=== PATIENT | male | born 1965 | race Two or more races ===

== ENCOUNTER 2020-05-10 21:26 | Inpatient (IN) | payer MEDICAID ==
[~2020-05-10] VITALS: Ht 170.2 cm; Wt 83.3 kg
[2020-05-10] MEDS ORDERED: LISI-662 PO (22:37)
[2020-05-10] MEDS ORDERED: BACITRACIN 0.9 GM PACKET OINTMENT TP ONE (23:00)
[2020-05-10] MEDS ORDERED: PERTUSS(ACELL),DIPH,TET VAC/PF 0.5 ML SYRINGE IM ONE (23:00)
[2020-05-10] MEDS ORDERED: LIDOCAINE 2% 5 ML JELLY TP ONE (23:00)
[2020-05-10 23:18] LABS: BASOPHILS % (AUTO) 0.7 % (0.0-2.0); HEMATOCRIT 42.2 % (41-53); HEMOGLOBIN 14.3 g/dL (13.5-17.5); LYMPHOCYTES # (AUTO) 1.4 K/uL (1.0-4.8); LYMPHOCYTES % (AUTO) 15.6 % (22.0-44.0); MEAN CORPUSCULAR HEMOGLOBIN 32.6 pg (26.0-34.0); MEAN CORPUSCULAR HGB CONC 33.8 G/dL (31.0-37.0); MEAN CORPUSCULAR VOLUME 96 fL (80-100); MONOCYTES # (AUTO) 0.7 K/uL (0.1-1.0); MONOCYTES % (AUTO) 8.6 % (2.0-9.0); NEUTROPHILS # (AUTO) 6.4 K/uL (1.8-7.7); NEUTROPHILS % (AUTO) 73.1 % (40.0-70.0); PLATELET COUNT (AUTO) 236 K/uL (150-450); RED BLOOD CELL COUNT(AUTO) 4.38 MIL/uL (4.50-5.90); RED CELL DISTRIBUTION WIDTH 13.1 % (11.5-14.5)
[2020-05-10 23:29] LABS: ANION GAP 7 mmol/L (8-16); CALCIUM, TOTAL 8.5 mg/dL (8.8-10.5); CARBON DIOXIDE 28 mmol/L (22-29); CHLORIDE 102 mmol/L (98-107); CREATININE 1.41 mg/dL (0.60-1.30); GLOMERULAR FILTR. RATE CALC 52 mL/min (>60); GLUCOSE,RANDOM 113 mg/dL (70-110); POTASSIUM 3.5 mmol/L (3.5-5.1); SODIUM SERUM 137 mmol/L (136-145); UREA NITROGEN, BLOOD 14 mg/dL (7-18)
[2020-05-10 23:34] LABS: ALANINE AMINOTRANSFERASE 34 U/L (12-78); ALBUMIN 3.6 g/dL (3.4-5.0); ALKALINE PHOSPHATASE 68 U/L (46-116); ASPARTATE AMINOTRANSFERASE 35 U/L (15-37); BILIRUBIN,TOTAL 0.6 mg/dL (0.1-1.0)
[2020-05-11] MEDS ORDERED: POTASSIUM CHL 20 MEQ/D5-0.45NS 1,000 ML IV ONE (01:15)
[2020-05-11] MEDS ORDERED: ONDANSETRON HCL 4 MG/2 ML VIAL IVP PRN ×2 (01:15→11:15)
[2020-05-11] MEDS ORDERED: 0.9% SODIUM CHLORIDE 10 ML SYRINGE IVP PRN (01:15)
[2020-05-11 01:49] LABS: COVID AG,FIA SOURCE NASOPHARYNGEAL
[2020-05-11 03:14] VITALS: BP 126/86
[2020-05-11 08:01] VITALS: BP 130/86
[2020-05-11] MEDS ORDERED: BISACODYL 10 MG RECTAL RECTAL SUPPOSITORY PR PRN (11:15)
[2020-05-11] MEDS ORDERED: MAGNESIUM HYDROXIDE SUSPENSION 30 ML UDCUP PO PRN (11:15)
[2020-05-11] MEDS ORDERED: ZOLPIDEM TARTRATE 5 MG TABLET PO PRN (11:15)
[2020-05-11] MEDS ORDERED: HYDROCODONE/ACETAMINOPHEN 5-325 MG TABLET PO PRN (11:15)
[2020-05-11] MEDS ORDERED: MORPHINE SULFATE 2 MG/ML SYRINGE IVP PRN (11:15)
[2020-05-11 11:49] VITALS: BP 145/91
[2020-05-11] MEDS: LISINOPRIL 20 MG TABLET PO SCH (11:52)
[2020-05-11] MEDS: ACETAMINOPHEN 325 MG TABLET PO PRN ×2 (13:55→20:16)
[2020-05-11 15:41] VITALS: BP 115/76
[2020-05-11] MEDS: HEPARIN SODIUM,PORCINE 5,000 UNITS/ML VIAL SQ SCH ×2 (16:00→23:57)
[2020-05-11 20:00] VITALS: BP 106/63
[2020-05-11] MEDS: DOCUSATE SODIUM 100 MG CAPSULE PO SCH (21:00)
[2020-05-11 23:38] VITALS: BP 108/65
[2020-05-12 03:45] VITALS: BP 123/76
[2020-05-12 07:24] VITALS: BP 120/76
[2020-05-12] MEDS: ACETAMINOPHEN 325 MG TABLET PO PRN (08:19)
[2020-05-12] MEDS: DOCUSATE SODIUM 100 MG CAPSULE PO SCH ×2 (08:19→08:20)
[2020-05-12] MEDS: LISINOPRIL 20 MG TABLET PO SCH (08:19)
[2020-05-12] MEDS: HEPARIN SODIUM,PORCINE 5,000 UNITS/ML VIAL SQ SCH (08:19)
[2020-05-12] MEDS ORDERED: PANTOPRAZOLE SODIUM 40 MG DR TABLET PO SCH (09:00)
[2020-05-12 10:31] LABS: ANION GAP 8 mmol/L (8-16); CALCIUM, TOTAL 8.8 mg/dL (8.8-10.5); CARBON DIOXIDE 29 mmol/L (22-29); CHLORIDE 103 mmol/L (98-107); CREATININE 0.88 mg/dL (0.60-1.30); GLOMERULAR FILTR. RATE CALC > 60 mL/min (>60); GLUCOSE,RANDOM 69 mg/dL (70-110); POTASSIUM 4.6 mmol/L (3.5-5.1); SODIUM SERUM 140 mmol/L (136-145); UREA NITROGEN, BLOOD 12 mg/dL (7-18)
== END 2020-05-12 12:15 | disposition home or self-care (01) | DRG 347 ==
LOC: EMS 21:28 → 6N 05-11 01:07
PROVIDERS: ADMIT Internal Medicine; ATTEND Internal Medicine
PROC: 0HQ0XZZ Repair Scalp Skin, External Approach (ICD-10-PCS; principal; 2020-05-11)
DX: S12.101A Unspecified nondisplaced fracture of second cervical vertebra, initial encounter for closed fracture (principal); S01.01XA Laceration without foreign body of scalp, initial encounter; N18.9 Chronic kidney disease, unspecified; R73.9 Hyperglycemia, unspecified; I12.9 Hypertensive chronic kidney disease with stage 1 through stage 4 chronic kidney disease, or unspecified chronic kidney disease; N17.9 Acute kidney failure, unspecified; Z20.822 Contact with and (suspected) exposure to COVID-19; H40.9 Unspecified glaucoma; F17.210 Nicotine dependence, cigarettes, uncomplicated; F10.10 Alcohol abuse, uncomplicated; F19.10 Other psychoactive substance abuse, uncomplicated; V43.02XA Car driver injured in collision with other type car in nontraffic accident, initial encounter; Y93.89 Activity, other specified; Y99.8 Other external cause status; Y92.481 Parking lot as the place of occurrence of the external cause; Z59.0 Homelessness; Z79.899 Other long term (current) drug therapy
CPT/HCPCS: 70450; 72070; 72100; 72125; 72141; 87081; 87426; 90715; 99291; G0480; J1644; J3480; 36415-L1; 36415-TC; 71045-TC

== ENCOUNTER 2020-06-28 21:29 | Emergency (ER) | payer MEDICAID ==
[~2020-06-28] VITALS: Ht 170.2 cm; Wt 79.5 kg
[2020-06-28] MEDS ORDERED: LISI-894 PO (21:38)
[2020-06-29 00:49] VITALS: BP 150/101
== END 2020-06-29 03:01 | disposition left against medical advice (07) ==
LOC: EMS 21:29
DX: S01.01XD Laceration without foreign body of scalp, subsequent encounter (principal); F17.210 Nicotine dependence, cigarettes, uncomplicated; F15.90 Other stimulant use, unspecified, uncomplicated; M79.89 Other specified soft tissue disorders; X58.XXXD Exposure to other specified factors, subsequent encounter
CPT/HCPCS: 99281; Z7502

== ENCOUNTER 2020-07-19 09:50 | Emergency (ER) | payer MEDICAID ==
[~2020-07-19] VITALS: Ht 167.6 cm; Wt 84.1 kg
[~2020-07-19 09:50] MED LIST: LISI-894 PO
[2020-07-19 09:52] VITALS: BP 139/94
[2020-07-19] MEDS ORDERED: SULFAMETHOX/TRIMETH DS 800-160 MG/TABLET PO ONE (10:30)
[2020-07-19] MEDS ORDERED: CEPHALEXIN MONOHYDRATE 500 MG CAPSULE PO ONE (10:30)
== END 2020-07-19 10:41 | disposition home or self-care (01) ==
LOC: EMS 09:54
DX: L02.512 Cutaneous abscess of left hand (principal); L02.414 Cutaneous abscess of left upper limb; I10 Essential (primary) hypertension; F17.210 Nicotine dependence, cigarettes, uncomplicated; F19.90 Other psychoactive substance use, unspecified, uncomplicated; Z79.899 Other long term (current) drug therapy
CPT/HCPCS: 99283

== ENCOUNTER 2021-01-02 11:05 | Emergency (ER) | payer MEDICAID ==
[~2021-01-02] VITALS: Ht 167.6 cm; Wt 84.1 kg
[2021-01-02 11:07] VITALS: BP 131/86
[2021-01-02] MEDS ORDERED: BACITRACIN 0.9 GM PACKET OINTMENT TP ONE (12:30)
[2021-01-02] MEDS ORDERED: POVIDONE-IODINE 10% 15 ML SOLUTION UD TP ONE (12:30)
[2021-01-02] MEDS ORDERED: ACETAMINOPHEN 500 MG TABLET PO ONE (12:30)
== END 2021-01-02 13:05 | disposition home or self-care (01) ==
LOC: EMS 11:09
DX: S81.801A Unspecified open wound, right lower leg, initial encounter (principal); S81.802A Unspecified open wound, left lower leg, initial encounter; I10 Essential (primary) hypertension; F17.210 Nicotine dependence, cigarettes, uncomplicated; F19.90 Other psychoactive substance use, unspecified, uncomplicated; W57.XXXA Bitten or stung by nonvenomous insect and other nonvenomous arthropods, initial encounter; Y93.89 Activity, other specified; Y92.89 Other specified places as the place of occurrence of the external cause; Y99.8 Other external cause status
CPT/HCPCS: 99283

== ENCOUNTER 2021-03-10 09:11 | Inpatient (IN) | payer MEDICAID ==
[~2021-03-10] VITALS: Ht 167.6 cm; Wt 78.9 kg
[2021-03-10] MEDS ORDERED: ONDANSETRON HCL 4 MG/2 ML VIAL IVP ONE (13:00)
[2021-03-10] MEDS ORDERED: ACETAMINOPHEN 500 MG TABLET PO ONE (13:00)
[2021-03-10] MEDS ORDERED: MORPHINE SULFATE 4 MG/ML SYRINGE IVP ONE (13:00)
[2021-03-10] MEDS ORDERED: ACETAMINOPHEN 1000 MG/ISO-OSM 100 ML IV ONE (13:00)
[2021-03-10 13:15] LABS: BASOPHILS % (AUTO) 0.2 % (0.0-2.0); EOSINOPHILS % (AUTO) 0 % (1.0-6.0); HEMOGLOBIN 15.4 g/dL (13.5-17.5); LYMPHOCYTES # (AUTO) 0.7 K/uL (1.0-4.8); LYMPHOCYTES % (AUTO) 2.8 % (22.0-44.0); MEAN CORPUSCULAR HEMOGLOBIN 30.4 pg (26.0-34.0); MEAN CORPUSCULAR HGB CONC 33.4 G/dL (31.0-37.0); MEAN CORPUSCULAR VOLUME 91 fL (80-100); MONOCYTES # (AUTO) 1.7 K/uL (0.1-1.0); MONOCYTES % (AUTO) 6.3 % (2.0-9.0); NEUTROPHILS # (AUTO) 23.6 K/uL (1.8-7.7); PLATELET COUNT (AUTO) 506 K/uL (150-450); RED BLOOD CELL COUNT(AUTO) 5.05 MIL/uL (4.50-5.90); RED CELL DISTRIBUTION WIDTH 14.6 % (11.5-14.5)
[2021-03-10 13:17] LABS: NEUTROPHILS % (AUTO) 90.7 % (40.0-70.0)
[2021-03-10 13:22] LABS: ANION GAP 9 mmol/L (8-16); CALCIUM, TOTAL 9.1 mg/dL (8.8-10.5); CARBON DIOXIDE 25 mmol/L (22-29); CHLORIDE 95 mmol/L (98-107); CREATININE 1.22 mg/dL (0.60-1.30); GLOMERULAR FILTR. RATE CALC > 60 mL/min (>60); GLUCOSE,RANDOM 115 mg/dL (70-110); POTASSIUM 3.9 mmol/L (3.5-5.1); SODIUM SERUM 129 mmol/L (136-145); UREA NITROGEN, BLOOD 14 mg/dL (7-18)
[2021-03-10 13:27] LABS: ALANINE AMINOTRANSFERASE 17 U/L (12-78); ALKALINE PHOSPHATASE 85 U/L (46-116); ASPARTATE AMINOTRANSFERASE 16 U/L (15-37); BILIRUBIN,TOTAL 0.9 mg/dL (0.1-1.0); TOTAL PROTEIN, SERUM 9.5 g/dL (6.4-8.2)
[2021-03-10 13:56] LABS: C-REACTIVE PROTEIN QUANT 26.23 mg/dL (0.00-0.30)
[2021-03-10 14:28] LABS: COVID AG,FIA SOURCE NASAL SWAB
[2021-03-10] MEDS ORDERED: ONDANSETRON HCL 4 MG/2 ML VIAL IVP PRN (14:45)
[2021-03-10] MEDS ORDERED: ACETAMINOPHEN 325 MG TABLET PO PRN (14:45)
[2021-03-10] MEDS ORDERED: MAGNESIUM HYDROXIDE SUSPENSION 30 ML UDCUP PO PRN (14:45)
[2021-03-10 14:57] LABS: ERYTHROCYTE SEDIMENTATION RATE 80 MM/HR (0-15)
[2021-03-10] MEDS: SODIUM CHLORIDE 0.9% 1,000 ML IV SCH ×2 (16:03→22:34)
[2021-03-10 21:22] VITALS: BP 109/69
[2021-03-10] MEDS: DOCUSATE SODIUM 100 MG CAPSULE PO SCH (21:31)
[2021-03-10] MEDS: MORPHINE SULFATE 2 MG/ML SYRINGE IVP PRN (21:32)
[2021-03-10 23:52] VITALS: BP 117/68
[2021-03-11] MEDS: MORPHINE SULFATE 2 MG/ML SYRINGE IVP PRN ×4 (02:54→20:35)
[2021-03-11 04:27] VITALS: BP 116/69
[2021-03-11 07:39] VITALS: BP 123/66
[2021-03-11] MEDS: DOCUSATE SODIUM 100 MG CAPSULE PO SCH ×2 (07:58→20:33)
[2021-03-11] MEDS: PANTOPRAZOLE SODIUM 40 MG/VIAL IVP SCH (07:58)
[2021-03-11] MEDS: SODIUM CHLORIDE 0.9% 1,000 ML IV SCH ×2 (07:58→15:27)
[2021-03-11] MEDS ORDERED: SODIUM CL IRRIG SOLN BAG 6,000 ML IRRIG ONE (10:45)
[2021-03-11] MEDS ORDERED: SODIUM CL IRRIG SOLN BAG 3,000 ML IRRIG ONE (11:48)
[2021-03-11] MEDS ORDERED: BUPIVACAINE 0.25%/EPI 1:200,000/PF 10 ML VIAL ONE (11:48)
[2021-03-11 11:52] VITALS: BP 122/76
[2021-03-11] MEDS ORDERED: EPINEPHrine 1:1,000 [1 MG/ML] AMP ONE ×4 (12:15→12:47)
[2021-03-11] MEDS ORDERED: RINGERS SOLUTION,LACTATED 1,000 ML IV ONE (12:17)
[2021-03-11] MEDS ORDERED: VANCOMYCIN HCL 1 GM/VIAL ONE (13:13)
[2021-03-11] MEDS ORDERED: BUPIVACAINE HCL/PF 0.25% 10 ML VIAL ID ONE (13:15)
[2021-03-11] MEDS ORDERED: VANCOMYCIN HCL 1 GM/VIAL TP ONE (13:15)
[2021-03-11] MEDS ORDERED: FentaNYL CITRATE PF 100 MCG/2 ML VIAL IVP PRN (14:15)
[2021-03-11] MEDS ORDERED: HYDROmorphone 2 MG/ML VIAL IVP PRN (14:15)
[2021-03-11] MEDS ORDERED: MEPERIDINE-PF 25 MG/ML VIAL IVP PRN (14:15)
[2021-03-11 15:28] VITALS: BP 143/99
[2021-03-11] MEDS: HYDROCODONE/ACETAMINOPHEN 5-325 MG TABLET PO PRN ×2 (17:10→23:58)
[2021-03-11] MEDS: OXYGEN THERAPY IH SCH (20:00)
[2021-03-11 20:21] VITALS: BP 112/65
[2021-03-11] MEDS: ASPIRIN 81 MG CHEWABLE TABLET PO SCH (20:33)
[2021-03-11] MEDS: CeFAZolin 1 GM/DEXTROSE 50 ML IV SCH (20:34)
[2021-03-11 23:57] VITALS: BP 110/64
[2021-03-12] MEDS: SODIUM CHLORIDE 0.9% 1,000 ML IV SCH (02:05)
[2021-03-12] MEDS: CeFAZolin 1 GM/DEXTROSE 50 ML IV SCH ×3 (04:25→20:56)
[2021-03-12 04:32] VITALS: BP 118/88
[2021-03-12] MEDS ORDERED: PROPOFOL 1% 20 ML VIAL IVP ONE (06:26)
[2021-03-12] MEDS ORDERED: ONDANSETRON HCL 4 MG/2 ML VIAL IVP ONE (06:26)
[2021-03-12] MEDS ORDERED: SUCCINYLCHOLINE CHLORIDE 20 MG/ML 10 ML VIAL IVP ONE (06:26)
[2021-03-12] MEDS ORDERED: LIDOCAINE/PF 2% 5 ML VIAL IM ONE (06:26)
[2021-03-12] MEDS ORDERED: KETOROLAC TROMETHAMINE 60 MG/2 ML VIAL IM ONE (06:26)
[2021-03-12] MEDS ORDERED: FentaNYL CITRATE PF 100 MCG/2 ML VIAL IVP ONE (06:26)
[2021-03-12] MEDS ORDERED: MIDAZOLAM HCL 2 MG/2 ML VIAL IVP ONE (06:26)
[2021-03-12 07:43] VITALS: BP 118/78
[2021-03-12] MEDS: MORPHINE SULFATE 2 MG/ML SYRINGE IVP PRN ×4 (07:54→23:49)
[2021-03-12] MEDS: PANTOPRAZOLE SODIUM 40 MG/VIAL IVP SCH (07:55)
[2021-03-12] MEDS: ASPIRIN 81 MG CHEWABLE TABLET PO SCH ×2 (07:55→20:56)
[2021-03-12] MEDS: DOCUSATE SODIUM 100 MG CAPSULE PO SCH ×2 (07:55→20:55)
[2021-03-12] MEDS: OXYGEN THERAPY IH SCH ×2 (07:57→20:54)
[2021-03-12 08:30] LABS: BASOPHILS % (AUTO) 0.3 % (0.0-2.0); EOSINOPHILS % (AUTO) 0.4 % (1.0-6.0); HEMATOCRIT 33.3 % (41-53); HEMOGLOBIN 11.3 g/dL (13.5-17.5); LYMPHOCYTES # (AUTO) 0.9 K/uL (1.0-4.8); LYMPHOCYTES % (AUTO) 6.7 % (22.0-44.0); MEAN CORPUSCULAR HEMOGLOBIN 31.4 pg (26.0-34.0); MEAN CORPUSCULAR HGB CONC 33.9 G/dL (31.0-37.0); MEAN CORPUSCULAR VOLUME 93 fL (80-100); MONOCYTES # (AUTO) 1.1 K/uL (0.1-1.0); MONOCYTES % (AUTO) 8.5 % (2.0-9.0); NEUTROPHILS % (AUTO) 84.1 % (40.0-70.0); PLATELET COUNT (AUTO) 355 K/uL (150-450); RED CELL DISTRIBUTION WIDTH 14.3 % (11.5-14.5)
[2021-03-12 08:39] LABS: ANION GAP 3 mmol/L (8-16); CALCIUM, TOTAL 8.1 mg/dL (8.8-10.5); CARBON DIOXIDE 26 mmol/L (22-29); CHLORIDE 102 mmol/L (98-107); GLOMERULAR FILTR. RATE CALC > 60 mL/min (>60); GLUCOSE,RANDOM 124 mg/dL (70-110); POTASSIUM 4.5 mmol/L (3.5-5.1); SODIUM SERUM 131 mmol/L (136-145); UREA NITROGEN, BLOOD 12 mg/dL (7-18)
[2021-03-12] MEDS ORDERED: VANCOMYCIN HCL 1 GM/D5% WATER 200 ML IV ONE (10:00)
[2021-03-12 12:10] VITALS: BP 126/88
[2021-03-12] MEDS: HEPARIN SODIUM,PORCINE 5,000 UNITS/ML VIAL SQ SCH ×2 (16:20→23:53)
[2021-03-12] MEDS: VANCOMYCIN HCL 500 MG in DEXTROSE 5%-WATER 100 ML IV SCH ×2 (16:20→23:52)
[2021-03-12 16:35] VITALS: BP 121/84
[2021-03-12 19:52] VITALS: BP 148/87
[2021-03-12 23:46] VITALS: BP 145/88
[2021-03-13 04:07] VITALS: BP 138/82
[2021-03-13] MEDS: CeFAZolin 1 GM/DEXTROSE 50 ML IV SCH (04:37)
[2021-03-13 07:33] VITALS: BP 143/85
[2021-03-13] MEDS: PANTOPRAZOLE SODIUM 40 MG/VIAL IVP SCH (07:52)
[2021-03-13] MEDS: DOCUSATE SODIUM 100 MG CAPSULE PO SCH ×2 (07:52→21:31)
[2021-03-13] MEDS: ASPIRIN 81 MG CHEWABLE TABLET PO SCH ×2 (07:52→21:31)
[2021-03-13] MEDS: HEPARIN SODIUM,PORCINE 5,000 UNITS/ML VIAL SQ SCH ×2 (07:53→16:15)
[2021-03-13] MEDS: HYDROCODONE/ACETAMINOPHEN 5-325 MG TABLET PO PRN ×2 (07:54→21:31)
[2021-03-13 08:31] LABS: ANION GAP 5 mmol/L (8-16); C-REACTIVE PROTEIN QUANT 22.71 mg/dL (0.00-0.30); CALCIUM, TOTAL 7.9 mg/dL (8.8-10.5); CARBON DIOXIDE 27 mmol/L (22-29); CHLORIDE 99 mmol/L (98-107); CREATININE 0.87 mg/dL (0.60-1.30); GLOMERULAR FILTR. RATE CALC > 60 mL/min (>60); GLUCOSE,RANDOM 127 mg/dL (70-110); POTASSIUM 3.7 mmol/L (3.5-5.1); SODIUM SERUM 131 mmol/L (136-145); UREA NITROGEN, BLOOD 8 mg/dL (7-18)
[2021-03-13] MEDS: OXYGEN THERAPY IH SCH ×2 (08:48→20:00)
[2021-03-13] MEDS: VANCOMYCIN HCL 750 MG in DEXTROSE 5%-WATER 250 ML IV SCH ×2 (08:49→16:14)
[2021-03-13 11:20] VITALS: BP 131/89
[2021-03-13] MEDS: MORPHINE SULFATE 2 MG/ML SYRINGE IVP PRN (11:55)
[2021-03-13 15:21] VITALS: BP 140/91
[2021-03-13] MEDS ORDERED: RINGERS SOLUTION,LACTATED 1,000 ML IV ONE (15:54)
[2021-03-13] MEDS ORDERED: SODIUM CHLORIDE 0.9% 1,000 ML ONE (16:14)
[2021-03-13 19:35] VITALS: BP 147/87
[2021-03-14 00:05] VITALS: BP 135/79
[2021-03-14] MEDS: VANCOMYCIN HCL 750 MG in DEXTROSE 5%-WATER 250 ML IV SCH ×2 (00:37→10:13)
[2021-03-14] MEDS: HEPARIN SODIUM,PORCINE 5,000 UNITS/ML VIAL SQ SCH ×5 (00:37→23:06)
[2021-03-14 04:04] VITALS: BP 139/90
[2021-03-14] MEDS ORDERED: EPINEPHrine 1:1,000 [1 MG/ML] AMP ONE ×3 (07:09→08:13)
[2021-03-14] MEDS ORDERED: SODIUM CL IRRIG SOLN BAG 9,000 ML IRRIG ONE (07:09)
[2021-03-14] MEDS ORDERED: MUPIROCIN CALCIUM 2% 22 GM OINTMENT ONE (07:22)
[2021-03-14] MEDS ORDERED: HYDROGEN PEROXIDE 473 ML SOLUTION ONE (07:41)
[2021-03-14] MEDS ORDERED: HYDROmorphone 2 MG/ML VIAL IVP PRN (07:45)
[2021-03-14] MEDS ORDERED: FentaNYL CITRATE PF 100 MCG/2 ML VIAL IVP PRN (07:45)
[2021-03-14] MEDS ORDERED: VANCOMYCIN HCL 1 GM/VIAL ONE (07:59)
[2021-03-14] MEDS: OXYGEN THERAPY IH SCH ×4 (08:00→21:04)
[2021-03-14 10:05] VITALS: BP 155/100
[2021-03-14] MEDS: DOCUSATE SODIUM 100 MG CAPSULE PO SCH ×2 (10:14→20:56)
[2021-03-14] MEDS: ASPIRIN 81 MG CHEWABLE TABLET PO SCH ×2 (10:14→20:56)
[2021-03-14] MEDS: PANTOPRAZOLE SODIUM 40 MG/VIAL IVP SCH (10:14)
[2021-03-14 11:26] VITALS: BP 137/91
[2021-03-14 11:41] LABS: BASOPHILS % (AUTO) 0.3 % (0.0-2.0); EOSINOPHILS % (AUTO) 0.4 % (1.0-6.0); HEMOGLOBIN 11.3 g/dL (13.5-17.5); LYMPHOCYTES # (AUTO) 0.9 K/uL (1.0-4.8); LYMPHOCYTES % (AUTO) 8.1 % (22.0-44.0); MEAN CORPUSCULAR HEMOGLOBIN 30.4 pg (26.0-34.0); MEAN CORPUSCULAR HGB CONC 33.3 G/dL (31.0-37.0); MEAN CORPUSCULAR VOLUME 91 fL (80-100); MONOCYTES # (AUTO) 1.3 K/uL (0.1-1.0); MONOCYTES % (AUTO) 11.1 % (2.0-9.0); NEUTROPHILS % (AUTO) 80.1 % (40.0-70.0); PLATELET COUNT (AUTO) 415 K/uL (150-450); RED BLOOD CELL COUNT(AUTO) 3.73 MIL/uL (4.50-5.90); RED CELL DISTRIBUTION WIDTH 14.3 % (11.5-14.5)
[2021-03-14 11:59] LABS: ANION GAP 4 mmol/L (8-16); CALCIUM, TOTAL 8.1 mg/dL (8.8-10.5); CARBON DIOXIDE 29 mmol/L (22-29); CHLORIDE 98 mmol/L (98-107); CREATININE 0.88 mg/dL (0.60-1.30); GLOMERULAR FILTR. RATE CALC > 60 mL/min (>60); GLUCOSE,RANDOM 134 mg/dL (70-110); POTASSIUM 4.1 mmol/L (3.5-5.1); SODIUM SERUM 131 mmol/L (136-145); UREA NITROGEN, BLOOD 11 mg/dL (7-18)
[2021-03-14] MEDS: CefTRIAXone SODIUM 2 GM in DEXTROSE 5%-WATER 50 ML IV SCH (13:21)
[2021-03-14] MEDS: CLINDAMYCIN 900 MG/D5% WATER 50 ML IV SCH ×2 (14:05→20:58)
[2021-03-14 15:50] VITALS: BP 131/78
[2021-03-14 19:33] VITALS: BP 128/77
[2021-03-14] MEDS: HYDROCODONE/ACETAMINOPHEN 5-325 MG TABLET PO PRN (20:56)
[2021-03-15] VITALS: BP 120/68
[2021-03-15 04:20] VITALS: BP 110/66
[2021-03-15] MEDS: CLINDAMYCIN 900 MG/D5% WATER 50 ML IV SCH ×3 (04:48→20:30)
[2021-03-15] MEDS ORDERED: LIDOCAINE/PF 2% 5 ML VIAL IM ONE (06:16)
[2021-03-15] MEDS ORDERED: PROPOFOL 1% 20 ML VIAL IVP ONE (06:16)
[2021-03-15] MEDS ORDERED: SUCCINYLCHOLINE CHLORIDE 20 MG/ML 10 ML VIAL IVP ONE (06:16)
[2021-03-15] MEDS ORDERED: MIDAZOLAM HCL 2 MG/2 ML VIAL IVP ONE (06:16)
[2021-03-15] MEDS ORDERED: FentaNYL CITRATE PF 100 MCG/2 ML VIAL IVP ONE (06:16)
[2021-03-15] MEDS: OXYGEN THERAPY IH SCH ×4 (08:00→20:00)
[2021-03-15 08:16] VITALS: BP 120/74
[2021-03-15 09:09] LABS: BASOPHILS % (AUTO) 1.2 % (0.0-2.0); EOSINOPHILS % (AUTO) 1.3 % (1.0-6.0); HEMATOCRIT 34.6 % (41-53); HEMOGLOBIN 11.7 g/dL (13.5-17.5); LYMPHOCYTES # (AUTO) 1.1 K/uL (1.0-4.8); LYMPHOCYTES % (AUTO) 12.1 % (22.0-44.0); MEAN CORPUSCULAR HGB CONC 33.8 G/dL (31.0-37.0); MEAN CORPUSCULAR VOLUME 92 fL (80-100); MONOCYTES # (AUTO) 0.9 K/uL (0.1-1.0); MONOCYTES % (AUTO) 10.5 % (2.0-9.0); NEUTROPHILS # (AUTO) 6.7 K/uL (1.8-7.7); NEUTROPHILS % (AUTO) 74.9 % (40.0-70.0); PLATELET COUNT (AUTO) 471 K/uL (150-450); RED BLOOD CELL COUNT(AUTO) 3.78 MIL/uL (4.50-5.90); RED CELL DISTRIBUTION WIDTH 14.1 % (11.5-14.5)
[2021-03-15 09:21] LABS: ANION GAP 6 mmol/L (8-16); CALCIUM, TOTAL 8.2 mg/dL (8.8-10.5); CARBON DIOXIDE 28 mmol/L (22-29); CHLORIDE 100 mmol/L (98-107); CREATININE 0.82 mg/dL (0.60-1.30); GLOMERULAR FILTR. RATE CALC > 60 mL/min (>60); GLUCOSE,RANDOM 137 mg/dL (70-110); POTASSIUM 3.9 mmol/L (3.5-5.1); SODIUM SERUM 134 mmol/L (136-145); UREA NITROGEN, BLOOD 13 mg/dL (7-18)
[2021-03-15] MEDS: DOCUSATE SODIUM 100 MG CAPSULE PO SCH ×2 (09:42→09:45)
[2021-03-15] MEDS: ASPIRIN 81 MG CHEWABLE TABLET PO SCH ×2 (09:42→09:46)
[2021-03-15] MEDS: HEPARIN SODIUM,PORCINE 5,000 UNITS/ML VIAL SQ SCH ×3 (09:46→23:59)
[2021-03-15] MEDS: PANTOPRAZOLE SODIUM 40 MG/VIAL IVP SCH (10:56)
[2021-03-15 11:20] VITALS: BP 129/78
[2021-03-15] MEDS: CefTRIAXone SODIUM 2 GM in DEXTROSE 5%-WATER 50 ML IV SCH (13:18)
[2021-03-15] MEDS: MORPHINE SULFATE 2 MG/ML SYRINGE IVP PRN (14:48)
[2021-03-15 15:29] VITALS: BP 120/83
[2021-03-15] MEDS: HYDROCODONE/ACETAMINOPHEN 5-325 MG TABLET PO PRN (19:38)
[2021-03-15 21:32] VITALS: BP 127/82
[2021-03-16] MEDS: CLINDAMYCIN 900 MG/D5% WATER 50 ML IV SCH ×3 (05:38→20:36)
[2021-03-16] MEDS: OXYGEN THERAPY IH SCH ×4 (08:00→19:41)
[2021-03-16 08:19] LABS: ANION GAP 6 mmol/L (8-16); C-REACTIVE PROTEIN QUANT 11.91 mg/dL (0.00-0.30); CALCIUM, TOTAL 8.5 mg/dL (8.8-10.5); CARBON DIOXIDE 28 mmol/L (22-29); CHLORIDE 99 mmol/L (98-107); CREATININE 0.91 mg/dL (0.60-1.30); GLOMERULAR FILTR. RATE CALC > 60 mL/min (>60); GLUCOSE,RANDOM 112 mg/dL (70-110); POTASSIUM 4.6 mmol/L (3.5-5.1); SODIUM SERUM 133 mmol/L (136-145); UREA NITROGEN, BLOOD 15 mg/dL (7-18)
[2021-03-16] MEDS: PANTOPRAZOLE SODIUM 40 MG/VIAL IVP SCH (08:37)
[2021-03-16] MEDS: HEPARIN SODIUM,PORCINE 5,000 UNITS/ML VIAL SQ SCH ×2 (08:37→15:48)
[2021-03-16] MEDS: HYDROCODONE/ACETAMINOPHEN 5-325 MG TABLET PO PRN ×3 (08:38→18:01)
[2021-03-16] MEDS: ASPIRIN 81 MG CHEWABLE TABLET PO SCH ×2 (08:38→20:35)
[2021-03-16] MEDS: DOCUSATE SODIUM 100 MG CAPSULE PO SCH ×2 (08:45→20:35)
[2021-03-16 10:21] VITALS: BP 133/87
[2021-03-16] MEDS: CefTRIAXone SODIUM 2 GM in DEXTROSE 5%-WATER 50 ML IV SCH (12:05)
[2021-03-16 12:45] VITALS: BP 138/83
[2021-03-16] MEDS: MORPHINE SULFATE 2 MG/ML SYRINGE IVP PRN (15:48)
[2021-03-16 16:55] VITALS: BP 116/78
[2021-03-17] MEDS: HEPARIN SODIUM,PORCINE 5,000 UNITS/ML VIAL SQ SCH ×4 (00:24→23:21)
[2021-03-17] MEDS: MORPHINE SULFATE 2 MG/ML SYRINGE IVP PRN ×2 (00:24→04:17)
[2021-03-17] MEDS: CLINDAMYCIN 900 MG/D5% WATER 50 ML IV SCH ×3 (04:17→20:56)
[2021-03-17] MEDS: OXYGEN THERAPY IH SCH ×3 (08:00→22:00)
[2021-03-17 08:16] VITALS: BP 128/88
[2021-03-17] MEDS: DOCUSATE SODIUM 100 MG CAPSULE PO SCH ×2 (08:33→21:49)
[2021-03-17] MEDS: ASPIRIN 81 MG CHEWABLE TABLET PO SCH ×2 (08:34→21:49)
[2021-03-17] MEDS: PANTOPRAZOLE SODIUM 40 MG/VIAL IVP SCH (08:34)
[2021-03-17 11:18] VITALS: BP 139/84
[2021-03-17] MEDS: CefTRIAXone SODIUM 2 GM in DEXTROSE 5%-WATER 50 ML IV SCH (12:24)
[2021-03-17 16:05] VITALS: BP 124/80
[2021-03-17] MEDS: HYDROCODONE/ACETAMINOPHEN 5-325 MG TABLET PO PRN ×2 (18:34→20:57)
[2021-03-17 19:15] VITALS: BP 127/76
[2021-03-18] VITALS (7 sets, daily range): BP systolic 107–138; BP diastolic 69–93
[2021-03-18] MEDS: CLINDAMYCIN 900 MG/D5% WATER 50 ML IV SCH (04:22)
[2021-03-18] MEDS: PANTOPRAZOLE SODIUM 40 MG/VIAL IVP SCH (08:35)
[2021-03-18] MEDS: ASPIRIN 81 MG CHEWABLE TABLET PO SCH ×2 (08:35→20:07)
[2021-03-18] MEDS: HEPARIN SODIUM,PORCINE 5,000 UNITS/ML VIAL SQ SCH ×2 (08:35→15:44)
[2021-03-18] MEDS: DOCUSATE SODIUM 100 MG CAPSULE PO SCH ×2 (08:35→20:07)
[2021-03-18] MEDS: HYDROCODONE/ACETAMINOPHEN 5-325 MG TABLET PO PRN ×3 (08:41→22:33)
[2021-03-18] MEDS: CefTRIAXone SODIUM 2 GM in DEXTROSE 5%-WATER 50 ML IV SCH (12:24)
[2021-03-18] MEDS ORDERED: BISACODYL 10 MG RECTAL RECTAL SUPPOSITORY PR PRN (16:30)
[2021-03-18] MEDS: MAGNESIUM HYDROXIDE SUSPENSION 30 ML UDCUP PO PRN (17:32)
[2021-03-18] MEDS: OXYGEN THERAPY IH SCH ×2 (20:00)
[2021-03-19] MEDS: HEPARIN SODIUM,PORCINE 5,000 UNITS/ML VIAL SQ SCH ×4 (01:01→23:12)
[2021-03-19 04:24] VITALS: BP 128/77
[2021-03-19] MEDS: MAGNESIUM HYDROXIDE SUSPENSION 30 ML UDCUP PO PRN (06:56)
[2021-03-19 07:16] LABS: BASOPHILS % (AUTO) 1.2 % (0.0-2.0); EOSINOPHILS % (AUTO) 2.7 % (1.0-6.0); HEMATOCRIT 36.1 % (41-53); LYMPHOCYTES # (AUTO) 1.8 K/uL (1.0-4.8); LYMPHOCYTES % (AUTO) 22.5 % (22.0-44.0); MEAN CORPUSCULAR HEMOGLOBIN 30.3 pg (26.0-34.0); MEAN CORPUSCULAR HGB CONC 33.3 G/dL (31.0-37.0); MEAN CORPUSCULAR VOLUME 91 fL (80-100); MONOCYTES # (AUTO) 0.7 K/uL (0.1-1.0); MONOCYTES % (AUTO) 9.5 % (2.0-9.0); NEUTROPHILS % (AUTO) 64.1 % (40.0-70.0); PLATELET COUNT (AUTO) 589 K/uL (150-450); RED BLOOD CELL COUNT(AUTO) 3.96 MIL/uL (4.50-5.90); RED CELL DISTRIBUTION WIDTH 14.2 % (11.5-14.5)
[2021-03-19 07:45] VITALS: BP 133/81
[2021-03-19 07:50] LABS: ALANINE AMINOTRANSFERASE 38 U/L (12-78); ALBUMIN 2.1 g/dL (3.4-5.0); ALKALINE PHOSPHATASE 100 U/L (46-116); ANION GAP 10 mmol/L (8-16); ASPARTATE AMINOTRANSFERASE 29 U/L (15-37); BILIRUBIN,TOTAL 0.2 mg/dL (0.1-1.0); C-REACTIVE PROTEIN QUANT 4.93 mg/dL (0.00-0.30); CALCIUM, TOTAL 8.7 mg/dL (8.8-10.5); CARBON DIOXIDE 27 mmol/L (22-29); CHLORIDE 98 mmol/L (98-107); CREATININE 0.96 mg/dL (0.60-1.30); GLOMERULAR FILTR. RATE CALC > 60 mL/min (>60); GLUCOSE,RANDOM 145 mg/dL (70-110); POTASSIUM 4.3 mmol/L (3.5-5.1); SODIUM SERUM 135 mmol/L (136-145); TOTAL PROTEIN, SERUM 8.9 g/dL (6.4-8.2); UREA NITROGEN, BLOOD 18 mg/dL (7-18)
[2021-03-19] MEDS: ASPIRIN 81 MG CHEWABLE TABLET PO SCH ×2 (08:31→19:35)
[2021-03-19] MEDS: PANTOPRAZOLE SODIUM 40 MG/VIAL IVP SCH (08:31)
[2021-03-19] MEDS: DOCUSATE SODIUM 100 MG CAPSULE PO SCH ×2 (08:32→19:35)
[2021-03-19] MEDS: HYDROCODONE/ACETAMINOPHEN 5-325 MG TABLET PO PRN ×2 (11:26→19:34)
[2021-03-19] MEDS: CefTRIAXone SODIUM 2 GM in DEXTROSE 5%-WATER 50 ML IV SCH (12:37)
[2021-03-19 13:36] VITALS: BP 124/73
[2021-03-19 16:20] VITALS: BP 136/88
[2021-03-19 18:38] VITALS: BP 137/83
[2021-03-19 19:20] VITALS: BP 135/84
[2021-03-19] MEDS: OXYGEN THERAPY IH SCH (20:00)
[2021-03-19] MEDS: MELATONIN 3 MG TABLET PO PRN (21:54)
[2021-03-20 03:50] VITALS: BP 121/85
[2021-03-20] MEDS: OXYGEN THERAPY IH SCH (08:00)
[2021-03-20] MEDS: HYDROCODONE/ACETAMINOPHEN 5-325 MG TABLET PO PRN ×2 (08:05→19:19)
[2021-03-20] MEDS: DOCUSATE SODIUM 100 MG CAPSULE PO SCH ×2 (08:06→21:00)
[2021-03-20] MEDS: ASPIRIN 81 MG CHEWABLE TABLET PO SCH ×2 (08:06→21:25)
[2021-03-20] MEDS: PANTOPRAZOLE SODIUM 40 MG/VIAL IVP SCH (08:06)
[2021-03-20] MEDS: HEPARIN SODIUM,PORCINE 5,000 UNITS/ML VIAL SQ SCH ×2 (08:07→16:03)
[2021-03-20 08:21] VITALS: BP 135/95
[2021-03-20 12:27] VITALS: BP 144/94
[2021-03-20] MEDS ORDERED: SODIUM CHLORIDE 0.9% 500 ML IV ONE (13:04)
[2021-03-20] MEDS: CefTRIAXone SODIUM 2 GM in DEXTROSE 5%-WATER 50 ML IV SCH (13:17)
[2021-03-20 16:06] VITALS: BP 140/83
[2021-03-20 19:10] VITALS: BP 130/82
[2021-03-20 20:00] VITALS: BP 130/82
[2021-03-20] MEDS: MELATONIN 3 MG TABLET PO PRN (21:26)
[2021-03-21] VITALS: BP 130/82
[2021-03-21] MEDS: HEPARIN SODIUM,PORCINE 5,000 UNITS/ML VIAL SQ SCH ×3 (00:47→15:06)
[2021-03-21 04:10] VITALS: BP 135/83
[2021-03-21] MEDS: OXYGEN THERAPY IH SCH (08:00)
[2021-03-21] MEDS: ASPIRIN 81 MG CHEWABLE TABLET PO SCH ×2 (08:28→20:59)
[2021-03-21] MEDS: PANTOPRAZOLE SODIUM 40 MG/VIAL IVP SCH (08:29)
[2021-03-21] MEDS: DOCUSATE SODIUM 100 MG CAPSULE PO SCH ×2 (08:29→20:59)
[2021-03-21] MEDS: MORPHINE SULFATE 2 MG/ML SYRINGE IVP PRN ×2 (08:29→19:57)
[2021-03-21 08:44] VITALS: BP 122/57
[2021-03-21] MEDS: CefTRIAXone SODIUM 2 GM in DEXTROSE 5%-WATER 50 ML IV SCH (11:54)
[2021-03-21 14:46] VITALS: BP 117/78
[2021-03-21 20:04] VITALS: BP 109/79
[2021-03-22] VITALS: BP 109/79
[2021-03-22] MEDS: HEPARIN SODIUM,PORCINE 5,000 UNITS/ML VIAL SQ SCH ×4 (01:00→23:52)
[2021-03-22] MEDS: HYDROCODONE/ACETAMINOPHEN 5-325 MG TABLET PO PRN ×4 (01:05→23:57)
[2021-03-22 04:20] VITALS: BP 118/79
[2021-03-22 06:40] LABS: BASOPHILS % (AUTO) 0.8 % (0.0-2.0); EOSINOPHILS % (AUTO) 1.7 % (1.0-6.0); HEMATOCRIT 35.7 % (41-53); LYMPHOCYTES # (AUTO) 1.9 K/uL (1.0-4.8); LYMPHOCYTES % (AUTO) 24.1 % (22.0-44.0); MEAN CORPUSCULAR HEMOGLOBIN 30.8 pg (26.0-34.0); MEAN CORPUSCULAR HGB CONC 33.6 G/dL (31.0-37.0); MEAN CORPUSCULAR VOLUME 92 fL (80-100); MONOCYTES # (AUTO) 0.8 K/uL (0.1-1.0); MONOCYTES % (AUTO) 9.4 % (2.0-9.0); NEUTROPHILS # (AUTO) 5.1 K/uL (1.8-7.7); PLATELET COUNT (AUTO) 561 K/uL (150-450); RED BLOOD CELL COUNT(AUTO) 3.89 MIL/uL (4.50-5.90); RED CELL DISTRIBUTION WIDTH 14.2 % (11.5-14.5)
[2021-03-22 07:52] VITALS: BP 131/84
[2021-03-22] MEDS: ASPIRIN 81 MG CHEWABLE TABLET PO SCH ×2 (08:29→21:24)
[2021-03-22] MEDS: DOCUSATE SODIUM 100 MG CAPSULE PO SCH ×2 (08:30→21:00)
[2021-03-22] MEDS: PANTOPRAZOLE SODIUM 40 MG/VIAL IVP SCH (08:30)
[2021-03-22 08:32] LABS: ALANINE AMINOTRANSFERASE 37 U/L (12-78); ALBUMIN 2.4 g/dL (3.4-5.0); ALKALINE PHOSPHATASE 86 U/L (46-116); ANION GAP 5 mmol/L (8-16); ASPARTATE AMINOTRANSFERASE 29 U/L (15-37); BILIRUBIN,TOTAL 0.2 mg/dL (0.1-1.0); C-REACTIVE PROTEIN QUANT 1.99 mg/dL (0.00-0.30); CALCIUM, TOTAL 9.1 mg/dL (8.8-10.5); CARBON DIOXIDE 28 mmol/L (22-29); CHLORIDE 101 mmol/L (98-107); CREATININE 0.92 mg/dL (0.60-1.30); GLOMERULAR FILTR. RATE CALC > 60 mL/min (>60); GLUCOSE,RANDOM 95 mg/dL (70-110); POTASSIUM 4.5 mmol/L (3.5-5.1); SODIUM SERUM 134 mmol/L (136-145); TOTAL PROTEIN, SERUM 9.1 g/dL (6.4-8.2); UREA NITROGEN, BLOOD 20 mg/dL (7-18)
[2021-03-22] MEDS: CefTRIAXone SODIUM 2 GM in DEXTROSE 5%-WATER 50 ML IV SCH (13:05)
[2021-03-22 19:20] VITALS: BP 140/92
[2021-03-22] MEDS: MORPHINE SULFATE 2 MG/ML SYRINGE IVP PRN (19:54)
[2021-03-22 20:00] VITALS: BP 140/92
[2021-03-22] MEDS: MELATONIN 3 MG TABLET PO PRN (21:24)
[2021-03-23] VITALS: BP 140/92
[2021-03-23 04:15] VITALS: BP 132/89
[2021-03-23] MEDS: HEPARIN SODIUM,PORCINE 5,000 UNITS/ML VIAL SQ SCH ×2 (08:11→17:45)
[2021-03-23] MEDS: PANTOPRAZOLE SODIUM 40 MG/VIAL IVP SCH (08:11)
[2021-03-23] MEDS: ASPIRIN 81 MG CHEWABLE TABLET PO SCH ×2 (08:12→22:32)
[2021-03-23] MEDS: DOCUSATE SODIUM 100 MG CAPSULE PO SCH ×2 (08:12→21:00)
[2021-03-23] MEDS: HYDROCODONE/ACETAMINOPHEN 5-325 MG TABLET PO PRN ×2 (08:37→19:32)
[2021-03-23 08:45] VITALS: BP 136/78
[2021-03-23 12:22] VITALS: BP 133/90
[2021-03-23] MEDS: CefTRIAXone SODIUM 2 GM in DEXTROSE 5%-WATER 50 ML IV SCH (12:41)
[2021-03-23 17:15] VITALS: BP 138/86
[2021-03-23 20:51] VITALS: BP 127/91
[2021-03-24] VITALS: BP 127/91
[2021-03-24] MEDS: HEPARIN SODIUM,PORCINE 5,000 UNITS/ML VIAL SQ SCH ×2 (00:44→08:58)
[2021-03-24 04:00] VITALS: BP 133/86
[2021-03-24 08:46] VITALS: BP 125/80
[2021-03-24] MEDS: ASPIRIN 81 MG CHEWABLE TABLET PO SCH (08:58)
[2021-03-24] MEDS: DOCUSATE SODIUM 100 MG CAPSULE PO SCH (08:58)
[2021-03-24] MEDS: PANTOPRAZOLE SODIUM 40 MG/VIAL IVP SCH (08:58)
[2021-03-24] MEDS ORDERED: PENI500T2 PO (11:04)
[2021-03-24] MEDS: HYDROCODONE/ACETAMINOPHEN 5-325 MG TABLET PO PRN (11:20)
[2021-03-24] MEDS: CefTRIAXone SODIUM 2 GM in DEXTROSE 5%-WATER 50 ML IV SCH (13:37)
[2021-03-25] MEDS ORDERED: PENICILLIN V POTASSIUM 500 MG TABLET PO SCH (09:00)
== END 2021-03-24 16:45 | disposition home or self-care (01) | DRG 313 ==
LOC: EMS 09:14 → 5S 19:00 → 6N 03-19 19:03
PROVIDERS: ADMIT Internal Medicine; ATTEND Internal Medicine
PROC: 0SBD4ZZ Excision of Left Knee Joint, Percutaneous Endoscopic Approach (ICD-10-PCS; 2021-03-11)
PROC: 0SQD4ZZ Repair Left Knee Joint, Percutaneous Endoscopic Approach (ICD-10-PCS; 2021-03-14)
PROC: 0SBD4ZZ Excision of Left Knee Joint, Percutaneous Endoscopic Approach (ICD-10-PCS; principal; 2021-03-14 07:30)
DX: M00.9 Pyogenic arthritis, unspecified (principal); E87.1 Hypo-osmolality and hyponatremia; S83.249A Other tear of medial meniscus, current injury, unspecified knee, initial encounter; L02.416 Cutaneous abscess of left lower limb; F15.90 Other stimulant use, unspecified, uncomplicated; H54.61 Unqualified visual loss, right eye, normal vision left eye; I10 Essential (primary) hypertension; M22.40 Chondromalacia patellae, unspecified knee; Z20.822 Contact with and (suspected) exposure to COVID-19; R26.2 Difficulty in walking, not elsewhere classified; F19.10 Other psychoactive substance abuse, uncomplicated; W19.XXXA Unspecified fall, initial encounter; Y93.89 Activity, other specified; Y92.89 Other specified places as the place of occurrence of the external cause; Y99.8 Other external cause status; Z86.14 Personal history of Methicillin resistant Staphylococcus aureus infection; Z87.891 Personal history of nicotine dependence
CPT/HCPCS: 80048; 80053; 80202; 83605; 85025; 85651; 86140; 87040; 87070; 87075; 87205; 88305; 97116; 97162; 97530; 99285; C9113; J0131; J0171; J0330; J0690; J0696; J1170; J1644; J1885; J2250; J2270; J2405; J2704; J3010; J3370; J3490; J7030; J7040; J7060; J7120

== ENCOUNTER 2021-09-11 12:05 | Emergency (ER) | payer MEDICAID ==
[~2021-09-11] VITALS: Ht 170.2 cm; Wt 79.5 kg
[~2021-09-11 12:05] MED LIST changes: -LISI-894 PO; +PENI500T2 PO
[2021-09-11] MEDS ORDERED: SODIUM CHLORIDE 0.9% 1,000 ML IV ONE (13:30)
[2021-09-11 13:59] LABS: BASOPHILS % (AUTO) 0.7 % (0.0-2.0); EOSINOPHILS % (AUTO) 1.3 % (1.0-6.0); HEMATOCRIT 35.8 % (41-53); HEMOGLOBIN 11.9 g/dL (13.5-17.5); LYMPHOCYTES # (AUTO) 0.8 K/uL (1.0-4.8); LYMPHOCYTES % (AUTO) 16.2 % (22.0-44.0); MEAN CORPUSCULAR HEMOGLOBIN 31.4 pg (26.0-34.0); MEAN CORPUSCULAR HGB CONC 33.3 G/dL (31.0-37.0); MEAN CORPUSCULAR VOLUME 94 fL (80-100); MONOCYTES # (AUTO) 0.5 K/uL (0.1-1.0); MONOCYTES % (AUTO) 9.6 % (2.0-9.0); NEUTROPHILS # (AUTO) 3.7 K/uL (1.8-7.7); NEUTROPHILS % (AUTO) 72.2 % (40.0-70.0); PLATELET COUNT (AUTO) 231 K/uL (150-450); RED BLOOD CELL COUNT(AUTO) 3.79 MIL/uL (4.50-5.90); RED CELL DISTRIBUTION WIDTH 14.8 % (11.5-14.5)
[2021-09-11 14:07] LABS: ANION GAP 9 mmol/L (8-16); CALCIUM, TOTAL 7.9 mg/dL (8.8-10.5); CARBON DIOXIDE 26 mmol/L (22-29); CHLORIDE 108 mmol/L (98-107); CREATININE 0.76 mg/dL (0.60-1.30); GLUCOSE,RANDOM 113 mg/dL (70-110); POTASSIUM 3.7 mmol/L (3.5-5.1); SODIUM SERUM 143 mmol/L (136-145); UREA NITROGEN, BLOOD 15 mg/dL (7-18)
[2021-09-11 14:08] LABS: GLOMERULAR FILTR. RATE CALC > 60 mL/min (>60)
[2021-09-11 14:12] LABS: ALANINE AMINOTRANSFERASE 277 U/L (12-78); ALBUMIN 3.2 g/dL (3.4-5.0); ALKALINE PHOSPHATASE 88 U/L (46-116); ASPARTATE AMINOTRANSFERASE 85 U/L (15-37); BILIRUBIN,TOTAL 0.6 mg/dL (0.1-1.0)
[2021-09-11] MEDS ORDERED: NALOXONE HCL 1 MG/ML 2 ML SYRINGE IVP ONE (14:15)
[2021-09-11 17:12] VITALS: BP 117/69
== END 2021-09-11 17:39 | disposition home or self-care (01) ==
LOC: EMS 12:07
DX: T40.5X1A Poisoning by cocaine, accidental (unintentional), initial encounter (principal); T40.1X1A Poisoning by heroin, accidental (unintentional), initial encounter; F10.20 Alcohol dependence, uncomplicated; F17.210 Nicotine dependence, cigarettes, uncomplicated; F19.10 Other psychoactive substance abuse, uncomplicated; I10 Essential (primary) hypertension; Y92.89 Other specified places as the place of occurrence of the external cause
CPT/HCPCS: 99285; 96374; 71045; 96361; 80053; 85025; 36415; J2310; J7030

== ENCOUNTER 2021-10-10 00:48 | Inpatient (IN) | payer MEDICAID ==
[~2021-10-10] VITALS: Ht 167.6 cm; Wt 75.0 kg
[2021-10-10] MEDS ORDERED: ONDANSETRON HCL 4 MG/2 ML VIAL IVP PRN ×2 (03:00→15:15)
[2021-10-10] MEDS ORDERED: POVIDONE-IODINE 10% 120 ML SOLUTION TP ONE (03:00)
[2021-10-10] MEDS ORDERED: PERTUSS(ACELL),DIPH,TET VAC/PF 0.5 ML SYRINGE IM. ONE (03:00)
[2021-10-10] MEDS ORDERED: ACETAMINOPHEN 325 MG TABLET PO PRN (03:00)
[2021-10-10] MEDS ORDERED: ACETAMINOPHEN 500 MG TABLET PO ONE (03:00)
[2021-10-10] MEDS ORDERED: 0.9% SODIUM CHLORIDE 10 ML SYRINGE IVP PRN (03:00)
[2021-10-10] MEDS ORDERED: VANCOMYCIN HCL 1.25 GM in DEXTROSE 5%-WATER 250 ML IV ONE ×2 (03:30→18:00)
[2021-10-10] MEDS ORDERED: PIPERACILLIN/TAZO 3.375 GM/D5W 50 ML IV ONE (03:30)
[2021-10-10 03:46] LABS: COVID AG,FIA SOURCE NASOPHARYNGEAL
[2021-10-10 03:49] LABS: BASOPHILS % (AUTO) 0.6 % (0.0-2.0); EOSINOPHILS % (AUTO) 0.7 % (1.0-6.0); HEMATOCRIT 36.4 % (41-53); LYMPHOCYTES % (AUTO) 10.1 % (22.0-44.0); MEAN CORPUSCULAR VOLUME 94 fL (80-100); MONOCYTES # (AUTO) 1.1 K/uL (0.1-1.0); MONOCYTES % (AUTO) 11.1 % (2.0-9.0); NEUTROPHILS # (AUTO) 7.3 K/uL (1.8-7.7); NEUTROPHILS % (AUTO) 77.5 % (40.0-70.0); PLATELET COUNT (AUTO) 315 K/uL (150-450); RED BLOOD CELL COUNT(AUTO) 3.87 MIL/uL (4.50-5.90); RED CELL DISTRIBUTION WIDTH 14.7 % (11.5-14.5)
[2021-10-10 04:05] LABS: ANION GAP 7 mmol/L (8-16); CALCIUM, TOTAL 8.2 mg/dL (8.8-10.5); CARBON DIOXIDE 27 mmol/L (22-29); CHLORIDE 102 mmol/L (98-107); CREATININE 0.96 mg/dL (0.60-1.30); GLUCOSE,RANDOM 108 mg/dL (70-110); POTASSIUM 3.6 mmol/L (3.5-5.1); SODIUM SERUM 136 mmol/L (136-145); UREA NITROGEN, BLOOD 11 mg/dL (7-18)
[2021-10-10 04:07] LABS: GLOMERULAR FILTR. RATE CALC > 60 mL/min (>60)
[2021-10-10 04:08] LABS: ALANINE AMINOTRANSFERASE 41 U/L (12-78); ALBUMIN 2.9 g/dL (3.4-5.0); ALKALINE PHOSPHATASE 75 U/L (46-116); ASPARTATE AMINOTRANSFERASE 23 U/L (15-37); BILIRUBIN,TOTAL 0.6 mg/dL (0.1-1.0); CREATINE KINASE, TOTAL ONLY 180 U/L (39-308); LIPASE 122 U/L (73-393); TOTAL PROTEIN, SERUM 7.4 g/dL (6.4-8.2)
[2021-10-10 04:11] LABS: LACTIC ACID 0.6 mmol/L (0.4-2.0)
[2021-10-10 11:00] VITALS: BP 123/86
[2021-10-10 15:04] VITALS: BP 125/86
[2021-10-10] MEDS ORDERED: MAGNESIUM HYDROXIDE SUSPENSION 30 ML UDCUP PO PRN (15:15)
[2021-10-10] MEDS ORDERED: BISACODYL 10 MG RECTAL RECTAL SUPPOSITORY PR PRN (15:15)
[2021-10-10] MEDS ORDERED: MORPHINE SULFATE 2 MG/ML SYRINGE IVP PRN (15:15)
[2021-10-10] MEDS ORDERED: SODIUM CHLORIDE 0.9% 250 ML IV ONE (17:25)
[2021-10-10] MEDS: HEPARIN SODIUM,PORCINE 5,000 UNITS/ML VIAL SQ SCH ×2 (17:42→23:34)
[2021-10-10 19:30] VITALS: BP 124/80
[2021-10-10] MEDS: ACETAMINOPHEN 325 MG TABLET PO PRN (20:06)
[2021-10-10] MEDS: DOCUSATE SODIUM 100 MG CAPSULE PO SCH (20:06)
[2021-10-10 21:47] LABS: APPEARANCE,URINE CLEAR (CLEAR); BILIRUBIN,URINE NEGATIVE (NEGATIVE); GLUCOSE, URINE (UA) NEGATIVE (NEGATIVE); KETONES,URINE NEGATIVE (NEGATIVE); LEUKOCYTE ESTERASE ,URINE NEGATIVE (NEGATIVE); NITRATE,URINE NEGATIVE (NEGATIVE); OCCULT BLOOD,URINE NEGATIVE (NEGATIVE); PH,URINE 7.5 (5.0-8.0); PROTEIN,URINE NEGATIVE (NEGATIVE); SPECIFIC GRAVITIY, URINE 1.013 (1.003-1.030)
[2021-10-10 21:54] LABS: AMPHET/METH SCREEN,URINE POSITIVE (NEGATIVE); BARBITURATE SCREEN, URINE NEGATIVE (NEGATIVE); BENZODIAZEPINES SCREEN,URINE NEGATIVE (NEGATIVE); CANNABINOID SCREEN,URINE NEGATIVE (NEGATIVE); COCAINE SCREEN,URINE NEGATIVE (NEGATIVE); METHADONE SCREEN, URINE NEGATIVE (NEGATIVE); OPIATE SCREEN,URINE NEGATIVE (NEGATIVE)
[2021-10-10 21:55] LABS: PHENCYCLIDINE SCREEN,URINE NEGATIVE (NEGATIVE)
[2021-10-10 22:12] LABS: BACTERIA,URINE None Seen /HPF (None Seen); RBC,URINE None Seen /HPF (0-2); WBC,URINE 0-2 /HPF (0-5)
[2021-10-10] MEDS: HYDROCODONE/ACETAMINOPHEN 5-325 MG TABLET PO PRN (23:32)
[2021-10-11] MEDS: ZOLPIDEM TARTRATE 5 MG TABLET PO PRN ×2 (00:37→23:46)
[2021-10-11] MEDS: ACETAMINOPHEN 325 MG TABLET PO PRN (00:39)
[2021-10-11 04:00] VITALS: BP 125/79
[2021-10-11 06:38] LABS: BASOPHILS % (AUTO) 1.4 % (0.0-2.0); EOSINOPHILS % (AUTO) 0.9 % (1.0-6.0); HEMATOCRIT 37.3 % (41-53); HEMOGLOBIN 12.4 g/dL (13.5-17.5); LYMPHOCYTES # (AUTO) 1.1 K/uL (1.0-4.8); LYMPHOCYTES % (AUTO) 9.7 % (22.0-44.0); MEAN CORPUSCULAR HEMOGLOBIN 31.3 pg (26.0-34.0); MEAN CORPUSCULAR HGB CONC 33.2 G/dL (31.0-37.0); MEAN CORPUSCULAR VOLUME 94 fL (80-100); MONOCYTES # (AUTO) 1.2 K/uL (0.1-1.0); MONOCYTES % (AUTO) 10.1 % (2.0-9.0); NEUTROPHILS # (AUTO) 9.1 K/uL (1.8-7.7); NEUTROPHILS % (AUTO) 77.9 % (40.0-70.0); PLATELET COUNT (AUTO) 327 K/uL (150-450); RED BLOOD CELL COUNT(AUTO) 3.95 MIL/uL (4.50-5.90); RED CELL DISTRIBUTION WIDTH 14.7 % (11.5-14.5)
[2021-10-11 06:56] LABS: ANION GAP 7 mmol/L (8-16); CALCIUM, TOTAL 8.3 mg/dL (8.8-10.5); CARBON DIOXIDE 26 mmol/L (22-29); CHLORIDE 100 mmol/L (98-107); CREATININE 0.83 mg/dL (0.60-1.30); GLUCOSE,RANDOM 109 mg/dL (70-110); POTASSIUM 3.9 mmol/L (3.5-5.1); SODIUM SERUM 133 mmol/L (136-145); UREA NITROGEN, BLOOD 11 mg/dL (7-18)
[2021-10-11 06:58] LABS: GLOMERULAR FILTR. RATE CALC > 60 mL/min (>60)
[2021-10-11] MEDS: HYDROCODONE/ACETAMINOPHEN 5-325 MG TABLET PO PRN ×2 (07:01→19:40)
[2021-10-11 07:32] VITALS: BP 120/80
[2021-10-11] MEDS ORDERED: VANCOMYCIN 1GM/WATER(PEG/NADA) 200 ML IV SCH (08:00)
[2021-10-11] MEDS: HEPARIN SODIUM,PORCINE 5,000 UNITS/ML VIAL SQ SCH ×3 (08:45→23:20)
[2021-10-11] MEDS: PANTOPRAZOLE SODIUM 40 MG DR TABLET PO SCH (08:45)
[2021-10-11] MEDS: DOCUSATE SODIUM 100 MG CAPSULE PO SCH ×2 (08:47→19:35)
[2021-10-11] MEDS: VANCOMYCIN HCL 750 MG in DEXTROSE 5%-WATER 250 ML IV SCH ×3 (08:52→23:44)
[2021-10-11] MEDS: NICOTINE 14 MG/24 HOUR PATCH TD SCH (15:14)
[2021-10-11 15:35] VITALS: BP 125/71
[2021-10-11 19:20] VITALS: BP 129/75
[2021-10-12 05:42] VITALS: BP 116/78
[2021-10-12] MEDS: HYDROCODONE/ACETAMINOPHEN 5-325 MG TABLET PO PRN ×2 (05:42→14:48)
[2021-10-12 06:35] LABS: BASOPHILS % (AUTO) 0.2 % (0.0-2.0); EOSINOPHILS % (AUTO) 1.3 % (1.0-6.0); HEMATOCRIT 36.6 % (41-53); HEMOGLOBIN 12.2 g/dL (13.5-17.5); LYMPHOCYTES # (AUTO) 1.3 K/uL (1.0-4.8); LYMPHOCYTES % (AUTO) 15.7 % (22.0-44.0); MEAN CORPUSCULAR HEMOGLOBIN 31.4 pg (26.0-34.0); MEAN CORPUSCULAR HGB CONC 33.4 G/dL (31.0-37.0); MEAN CORPUSCULAR VOLUME 94 fL (80-100); MONOCYTES % (AUTO) 11.4 % (2.0-9.0); NEUTROPHILS % (AUTO) 71.4 % (40.0-70.0); PLATELET COUNT (AUTO) 412 K/uL (150-450); RED BLOOD CELL COUNT(AUTO) 3.89 MIL/uL (4.50-5.90); RED CELL DISTRIBUTION WIDTH 14.3 % (11.5-14.5)
[2021-10-12 07:00] LABS: ANION GAP 7 mmol/L (8-16); CALCIUM, TOTAL 8.4 mg/dL (8.8-10.5); CARBON DIOXIDE 27 mmol/L (22-29); CHLORIDE 99 mmol/L (98-107); CREATININE 0.92 mg/dL (0.60-1.30); GLUCOSE,RANDOM 105 mg/dL (70-110); POTASSIUM 4.2 mmol/L (3.5-5.1); SODIUM SERUM 133 mmol/L (136-145); UREA NITROGEN, BLOOD 12 mg/dL (7-18)
[2021-10-12 07:01] LABS: GLOMERULAR FILTR. RATE CALC > 60 mL/min (>60)
[2021-10-12] MEDS: HEPARIN SODIUM,PORCINE 5,000 UNITS/ML VIAL SQ SCH ×3 (08:00→23:32)
[2021-10-12] MEDS: VANCOMYCIN HCL 750 MG in DEXTROSE 5%-WATER 250 ML IV SCH ×2 (08:00→16:00)
[2021-10-12 08:12] VITALS: BP 113/76
[2021-10-12] MEDS: NICOTINE 14 MG/24 HOUR PATCH TD SCH (09:00)
[2021-10-12] MEDS: PANTOPRAZOLE SODIUM 40 MG DR TABLET PO SCH (09:00)
[2021-10-12] MEDS: DOCUSATE SODIUM 100 MG CAPSULE PO SCH ×2 (09:00→20:14)
[2021-10-12] MEDS ORDERED: LIDOCAINE 2%/EPI 1:200,000/PF 20 ML VIAL ONE (09:30)
[2021-10-12] MEDS ORDERED: BUPIVACAINE HCL/PF 0.5% 30 ML VIAL ONE (09:30)
[2021-10-12] MEDS ORDERED: SODIUM CL IRRIG SOLN BAG 0 ML IRRIG ONE (09:33)
[2021-10-12] MEDS ORDERED: VANCOMYCIN HCL 1 GM/VIAL ONE (09:34)
[2021-10-12] MEDS ORDERED: SODIUM CHLORIDE 0.9% 1,000 ML ONE (09:36)
[2021-10-12] MEDS ORDERED: FentaNYL CITRATE PF 100 MCG/2 ML VIAL IVP PRN (10:15)
[2021-10-12] MEDS ORDERED: ONDANSETRON HCL 4 MG/2 ML VIAL IM PRN (10:30)
[2021-10-12] MEDS ORDERED: IBUPROFEN 800 MG TABLET PO PRN (10:30)
[2021-10-12] MEDS ORDERED: MORPHINE SULFATE 2 MG/ML SYRINGE IVP PRN (10:30)
[2021-10-12] MEDS ORDERED: ACETAMINOPHEN 500 MG TABLET PO PRN (10:30)
[2021-10-12 11:33] VITALS: BP 112/74
[2021-10-12] MEDS: CeFAZolin 2 GM/DEXTROSE 50 ML IV SCH ×2 (16:30→23:32)
[2021-10-12 20:29] VITALS: BP 122/66
[2021-10-13] MEDS: VANCOMYCIN HCL 750 MG in DEXTROSE 5%-WATER 250 ML IV SCH ×4 (00:32→23:57)
[2021-10-13] MEDS ORDERED: SUCCINYLCHOLINE CHLORIDE 20 MG/ML 10 ML VIAL IVP ONE (01:05)
[2021-10-13] MEDS ORDERED: PROPOFOL 1% 20 ML VIAL IVP ONE (01:05)
[2021-10-13] MEDS ORDERED: DEXAMETHASONE SOD PHOS 4 MG/ML VIAL IVP ONE (01:05)
[2021-10-13] MEDS ORDERED: MIDAZOLAM HCL 2 MG/2 ML VIAL IVP ONE (01:05)
[2021-10-13] MEDS ORDERED: FentaNYL CITRATE PF 100 MCG/2 ML VIAL IVP ONE (01:05)
[2021-10-13] MEDS ORDERED: KETOROLAC TROMETHAMINE 60 MG/2 ML VIAL IM ONE (01:05)
[2021-10-13] MEDS ORDERED: ONDANSETRON HCL 4 MG/2 ML VIAL IVP ONE (01:05)
[2021-10-13] MEDS ORDERED: METOCLOPRAMIDE HCL 5 MG/ML 2 ML VIAL IVP ONE (01:05)
[2021-10-13 04:33] VITALS: BP 124/70
[2021-10-13] MEDS ORDERED: SODIUM CHLORIDE 0.9% 500 ML IV ONE (06:41)
[2021-10-13 07:34] LABS: BASOPHILS % (AUTO) 1.1 % (0.0-2.0); EOSINOPHILS % (AUTO) 0.5 % (1.0-6.0); HEMATOCRIT 37.1 % (41-53); HEMOGLOBIN 12.3 g/dL (13.5-17.5); LYMPHOCYTES # (AUTO) 2.3 K/uL (1.0-4.8); LYMPHOCYTES % (AUTO) 19.4 % (22.0-44.0); MEAN CORPUSCULAR HEMOGLOBIN 31.2 pg (26.0-34.0); MEAN CORPUSCULAR HGB CONC 33.1 G/dL (31.0-37.0); MEAN CORPUSCULAR VOLUME 94 fL (80-100); MONOCYTES # (AUTO) 0.8 K/uL (0.1-1.0); MONOCYTES % (AUTO) 6.4 % (2.0-9.0); NEUTROPHILS # (AUTO) 8.6 K/uL (1.8-7.7); NEUTROPHILS % (AUTO) 72.6 % (40.0-70.0); PLATELET COUNT (AUTO) 402 K/uL (150-450); RED BLOOD CELL COUNT(AUTO) 3.93 MIL/uL (4.50-5.90); RED CELL DISTRIBUTION WIDTH 14.5 % (11.5-14.5)
[2021-10-13 07:43] LABS: ANION GAP 7 mmol/L (8-16); CALCIUM, TOTAL 8.6 mg/dL (8.8-10.5); CARBON DIOXIDE 28 mmol/L (22-29); CHLORIDE 101 mmol/L (98-107); CREATININE 0.82 mg/dL (0.60-1.30); GLUCOSE,RANDOM 99 mg/dL (70-110); POTASSIUM 3.9 mmol/L (3.5-5.1); SODIUM SERUM 136 mmol/L (136-145); UREA NITROGEN, BLOOD 15 mg/dL (7-18)
[2021-10-13 07:45] LABS: GLOMERULAR FILTR. RATE CALC > 60 mL/min (>60)
[2021-10-13 08:00] VITALS: BP 128/76
[2021-10-13] MEDS: OXYGEN THERAPY IH SCH (08:00)
[2021-10-13] MEDS: PANTOPRAZOLE SODIUM 40 MG DR TABLET PO SCH (08:20)
[2021-10-13] MEDS: HEPARIN SODIUM,PORCINE 5,000 UNITS/ML VIAL SQ SCH ×3 (08:20→23:58)
[2021-10-13] MEDS: DOCUSATE SODIUM 100 MG CAPSULE PO SCH ×2 (08:21→20:34)
[2021-10-13] MEDS: NICOTINE 14 MG/24 HOUR PATCH TD SCH (08:24)
[2021-10-13] MEDS: HYDROCODONE/ACETAMINOPHEN 5-325 MG TABLET PO PRN (09:18)
[2021-10-13 15:45] VITALS: BP 136/71
[2021-10-13 19:50] VITALS: BP 122/79
[2021-10-14 04:31] VITALS: BP 125/80
[2021-10-14 06:23] LABS: ANION GAP 6 mmol/L (8-16); CALCIUM, TOTAL 8.6 mg/dL (8.8-10.5); CARBON DIOXIDE 29 mmol/L (22-29); CHLORIDE 103 mmol/L (98-107); GLOMERULAR FILTR. RATE CALC > 60 mL/min (>60); GLUCOSE,RANDOM 94 mg/dL (70-110); POTASSIUM 4.5 mmol/L (3.5-5.1); SODIUM SERUM 138 mmol/L (136-145); UREA NITROGEN, BLOOD 17 mg/dL (7-18)
[2021-10-14 07:50] VITALS: BP 110/72
[2021-10-14 07:53] VITALS: BP 137/96
[2021-10-14] MEDS: OXYGEN THERAPY IH SCH ×2 (08:00→20:00)
[2021-10-14] MEDS: PANTOPRAZOLE SODIUM 40 MG DR TABLET PO SCH (08:37)
[2021-10-14] MEDS: HEPARIN SODIUM,PORCINE 5,000 UNITS/ML VIAL SQ SCH ×3 (08:37→23:10)
[2021-10-14] MEDS: NICOTINE 14 MG/24 HOUR PATCH TD SCH (08:40)
[2021-10-14] MEDS: DOCUSATE SODIUM 100 MG CAPSULE PO SCH ×2 (08:44→20:33)
[2021-10-14] MEDS: HYDROCODONE/ACETAMINOPHEN 5-325 MG TABLET PO PRN (08:59)
[2021-10-14] MEDS: VANCOMYCIN HCL 750 MG in DEXTROSE 5%-WATER 250 ML IV SCH ×3 (10:31→23:10)
[2021-10-14 15:42] VITALS: BP 132/64
[2021-10-14 20:26] VITALS: BP 125/75
[2021-10-15 04:28] VITALS: BP 115/77
[2021-10-15 06:54] LABS: BASOPHILS % (AUTO) 0.7 % (0.0-2.0); EOSINOPHILS % (AUTO) 1.7 % (1.0-6.0); HEMATOCRIT 40.4 % (41-53); HEMOGLOBIN 13.2 g/dL (13.5-17.5); LYMPHOCYTES # (AUTO) 2.2 K/uL (1.0-4.8); MEAN CORPUSCULAR HEMOGLOBIN 30.8 pg (26.0-34.0); MEAN CORPUSCULAR HGB CONC 32.7 G/dL (31.0-37.0); MEAN CORPUSCULAR VOLUME 94 fL (80-100); MONOCYTES # (AUTO) 0.7 K/uL (0.1-1.0); MONOCYTES % (AUTO) 9.8 % (2.0-9.0); NEUTROPHILS # (AUTO) 3.7 K/uL (1.8-7.7); NEUTROPHILS % (AUTO) 54.8 % (40.0-70.0); PLATELET COUNT (AUTO) 430 K/uL (150-450); RED CELL DISTRIBUTION WIDTH 14.5 % (11.5-14.5)
[2021-10-15 07:21] LABS: ANION GAP 11 mmol/L (8-16); CALCIUM, TOTAL 8.7 mg/dL (8.8-10.5); CARBON DIOXIDE 28 mmol/L (22-29); CHLORIDE 98 mmol/L (98-107); CREATININE 0.85 mg/dL (0.60-1.30); GLUCOSE,RANDOM 103 mg/dL (70-110); POTASSIUM 4.3 mmol/L (3.5-5.1); SODIUM SERUM 137 mmol/L (136-145); UREA NITROGEN, BLOOD 16 mg/dL (7-18); VANCOMYCIN,RANDOM 14.2 mcg/mL (25.0-50.0)
[2021-10-15 07:22] LABS: GLOMERULAR FILTR. RATE CALC > 60 mL/min (>60)
[2021-10-15] MEDS: OXYGEN THERAPY IH SCH ×2 (08:00→21:03)
[2021-10-15 08:21] VITALS: BP 125/91
[2021-10-15] MEDS: DOCUSATE SODIUM 100 MG CAPSULE PO SCH ×2 (09:00→21:00)
[2021-10-15] MEDS: NICOTINE 14 MG/24 HOUR PATCH TD SCH (09:03)
[2021-10-15] MEDS: VANCOMYCIN HCL 750 MG in DEXTROSE 5%-WATER 250 ML IV SCH ×3 (09:04→23:03)
[2021-10-15] MEDS: PANTOPRAZOLE SODIUM 40 MG DR TABLET PO SCH (09:04)
[2021-10-15] MEDS: HEPARIN SODIUM,PORCINE 5,000 UNITS/ML VIAL SQ SCH ×3 (09:04→23:02)
[2021-10-15] MEDS: HYDROCODONE/ACETAMINOPHEN 5-325 MG TABLET PO PRN (09:05)
[2021-10-15] MEDS ORDERED: SODIUM CHLORIDE 0.9% 500 ML IV ONE (16:12)
[2021-10-15 16:13] VITALS: BP 134/96
[2021-10-15 20:13] VITALS: BP 120/83
[2021-10-16 05:25] VITALS: BP 134/87
[2021-10-16 06:24] LABS: BASOPHILS % (AUTO) 1.3 % (0.0-2.0); EOSINOPHILS % (AUTO) 2.5 % (1.0-6.0); HEMOGLOBIN 13.3 g/dL (13.5-17.5); LYMPHOCYTES # (AUTO) 2.2 K/uL (1.0-4.8); LYMPHOCYTES % (AUTO) 31.9 % (22.0-44.0); MEAN CORPUSCULAR HEMOGLOBIN 31.2 pg (26.0-34.0); MEAN CORPUSCULAR HGB CONC 33.2 G/dL (31.0-37.0); MEAN CORPUSCULAR VOLUME 94 fL (80-100); MONOCYTES # (AUTO) 0.6 K/uL (0.1-1.0); MONOCYTES % (AUTO) 8.8 % (2.0-9.0); NEUTROPHILS # (AUTO) 3.8 K/uL (1.8-7.7); NEUTROPHILS % (AUTO) 55.5 % (40.0-70.0); PLATELET COUNT (AUTO) 414 K/uL (150-450); RED BLOOD CELL COUNT(AUTO) 4.25 MIL/uL (4.50-5.90); RED CELL DISTRIBUTION WIDTH 14.5 % (11.5-14.5)
[2021-10-16 06:38] LABS: ANION GAP 1 mmol/L (8-16); CALCIUM, TOTAL 8.7 mg/dL (8.8-10.5); CARBON DIOXIDE 31 mmol/L (22-29); CHLORIDE 101 mmol/L (98-107); CREATININE 0.85 mg/dL (0.60-1.30); GLUCOSE,RANDOM 100 mg/dL (70-110); POTASSIUM 4.3 mmol/L (3.5-5.1); SODIUM SERUM 133 mmol/L (136-145); UREA NITROGEN, BLOOD 16 mg/dL (7-18)
[2021-10-16 06:51] LABS: GLOMERULAR FILTR. RATE CALC > 60 mL/min (>60)
[2021-10-16] MEDS: OXYGEN THERAPY IH SCH (08:00)
[2021-10-16 08:08] VITALS: BP 129/96
[2021-10-16] MEDS: DOCUSATE SODIUM 100 MG CAPSULE PO SCH (08:34)
[2021-10-16] MEDS: PANTOPRAZOLE SODIUM 40 MG DR TABLET PO SCH (08:34)
[2021-10-16] MEDS: VANCOMYCIN HCL 750 MG in DEXTROSE 5%-WATER 250 ML IV SCH (08:34)
[2021-10-16] MEDS: HEPARIN SODIUM,PORCINE 5,000 UNITS/ML VIAL SQ SCH (08:35)
[2021-10-16] MEDS: NICOTINE 14 MG/24 HOUR PATCH TD SCH (08:42)
[2021-10-16] MEDS ORDERED: CLIN300C58 PO (12:34)
[2021-10-16] MEDS ORDERED: CEPH-558 PO (12:34)
[2021-10-16] MEDS ORDERED: SODIUM CL IRRIG SOLN BOTTLE 250 ML IRRIG ONE (13:07)
== END 2021-10-16 13:45 | disposition home or self-care (01) | DRG 383 ==
LOC: EMS 00:53 → 6N 10:23
PROVIDERS: ADMIT Internal Medicine; ATTEND Internal Medicine
PROC: 0JBN0ZZ Excision of Right Lower Leg Subcutaneous Tissue and Fascia, Open Approach (ICD-10-PCS; principal; 2021-10-12 09:45)
DX: L02.415 Cutaneous abscess of right lower limb (principal); D64.9 Anemia, unspecified; L03.115 Cellulitis of right lower limb; F15.10 Other stimulant abuse, uncomplicated; I10 Essential (primary) hypertension; F10.10 Alcohol abuse, uncomplicated; F14.90 Cocaine use, unspecified, uncomplicated; F19.10 Other psychoactive substance abuse, uncomplicated; Z20.822 Contact with and (suspected) exposure to COVID-19; Z59.00 Homelessness unspecified; Z87.891 Personal history of nicotine dependence; Z79.899 Other long term (current) drug therapy
CPT/HCPCS: 71045; 73700; 80048; 80053; 80202; 81001; 82550; 83605; 83690; 83735; 84484; 85025; 87040; 87070; 87081; 87186; 87205; 90715; 93005; 99285; G0480; J0330; J0690; J1100; J1644; J1885; J2250; J2405; J2543; J2704; J2765; J3010; J3370; J3490; J7030; J7040; J7050; J7060; Q9967; 36415-L1; 36415-TC; Z7610

== ENCOUNTER 2022-09-04 19:21 | Emergency (ER) | payer MEDICAID ==
[~2022-09-04] VITALS: Ht 167.6 cm; Wt 72.7 kg
[~2022-09-04 19:21] MED LIST changes: +AMOX1TAB16 PO; -PENI500T2 PO
[2022-09-04 19:26] VITALS: TEMP 98.1
[2022-09-04] MEDS ORDERED: CEPH-558 PO (21:33)
[2022-09-04] MEDS ORDERED: SULF-261 PO (21:33)
[2022-09-04] MEDS ORDERED: LIDOCAINE/PF 1% 2 ML VIAL IM ONE (21:45)
[2022-09-04] MEDS ORDERED: CefTRIAXone SODIUM 1 GM/VIAL IM ONE (21:45)
[2022-09-04 21:46] VITALS: BP 143/82; PULSE 84; RESP 16
== END 2022-09-04 21:47 | disposition home or self-care (01) ==
LOC: EMS 19:22
DX: L03.113 Cellulitis of right upper limb (principal); I10 Essential (primary) hypertension; F17.210 Nicotine dependence, cigarettes, uncomplicated; F14.90 Cocaine use, unspecified, uncomplicated; F19.90 Other psychoactive substance use, unspecified, uncomplicated; F15.90 Other stimulant use, unspecified, uncomplicated
CPT/HCPCS: 99283; 96372; J0696; J3490

== ENCOUNTER 2023-09-30 20:48 | Emergency (ER) | payer MEDICAID ==
[~2023-09-30] VITALS: Ht 170.2 cm; Wt 72.7 kg
[~2023-09-30 20:48] MED LIST changes: +AMOX-457 PO; -AMOX1TAB16 PO
[2023-09-30 20:56] VITALS: TEMP 98
[2023-10-01] MEDS: ACETAMINOPHEN 500 MG TABLET PO ONE (00:02)
[2023-10-01] MEDS: CEPHALEXIN MONOHYDRATE 500 MG CAPSULE PO ONE (00:02)
[2023-10-01] MEDS: DOXYCYCLINE HYCLATE 100 MG TABLET PO ONE (00:02)
[2023-10-01] MEDS ORDERED: DOXY-354 PO (00:56)
[2023-10-01] MEDS ORDERED: CEPH-558 PO (00:56)
[2023-10-01] MEDS ORDERED: IBUP-1554 PO (00:56)
[2023-10-01] MEDS: LIDOCAINE 1% 10 ML VIAL SQ ONE (00:58)
[2023-10-01 01:36] VITALS: BP 129/87; PULSE 91; RESP 17; O2SAT 95
== END 2023-10-01 01:59 | disposition home or self-care (01) ==
LOC: EMS 20:48
DX: L03.012 Cellulitis of left finger (principal); F12.90 Cannabis use, unspecified, uncomplicated; F15.90 Other stimulant use, unspecified, uncomplicated
CPT/HCPCS: 26011; 73140; 99284; J3490

== ENCOUNTER 2024-07-20 16:27 | Inpatient (IN) | payer MEDICAID ==
[~2024-07-20] VITALS: Ht 167.6 cm; Wt 72.0 kg
[~2024-07-20 16:27] MED LIST changes: +ALBU18HF12 IH; -AMOX-457 PO; +FURO40TA6 PO; +IPRA4AER IH; +LEVO750T68 PO; +LOSA-381 PO; +PRED-729 PO; +SPIR-37 PO
[2024-07-20 17:09] LABS: BASOPHILS % (AUTO) 1.3 % (0.0-2.0); EOSINOPHILS % (AUTO) 2.1 % (1.0-6.0); HEMATOCRIT 34.1 % (41-53); HEMOGLOBIN 11.4 g/dL (13.5-17.5); LYMPHOCYTES # (AUTO) 0.7 K/uL (1.0-4.8); LYMPHOCYTES % (AUTO) 13.5 % (22.0-44.0); MEAN CORPUSCULAR HGB CONC 33.3 G/dL (31.0-37.0); MEAN CORPUSCULAR VOLUME 96 fL (80-100); MONOCYTES # (AUTO) 0.8 K/uL (0.1-1.0); MONOCYTES % (AUTO) 15.1 % (2.0-9.0); NEUTROPHILS # (AUTO) 3.6 K/uL (1.8-7.7); PLATELET COUNT (AUTO) 182 K/uL (150-450); RED BLOOD CELL COUNT(AUTO) 3.55 MIL/uL (4.50-5.90); RED CELL DISTRIBUTION WIDTH 15.4 % (11.5-14.5); WHITE BLOOD COUNT (AUTO) 5.3 K/uL (4.5-11.0)
[2024-07-20 17:19] LABS: ANION GAP 6 mmol/L (8-16); CALCIUM, TOTAL 8.5 mg/dL (8.8-10.5); CARBON DIOXIDE 28 mmol/L (22-29); CHLORIDE 108 mmol/L (98-107); CREATININE 1.13 mg/dL (0.60-1.30); GLOMERULAR FILTR. RATE CALC > 60 mL/min (>60); GLUCOSE,RANDOM 93 mg/dL (70-110); SODIUM SERUM 142 mmol/L (136-145); UREA NITROGEN, BLOOD 25 mg/dL (7-18)
[2024-07-20 17:25] LABS: B-TYPE NATRIURETIC PEPTIDE 1470 pg/mL (0-100)
[2024-07-20 17:28] LABS: TROPONIN I-HIGH SENSITIVITY 26 ng/L (<76)
[2024-07-20] MEDS: NITROGLYCERIN 2% (1 GM=INCH) OINTMENT PACKET TP ONE (17:49)
[2024-07-20] MEDS: ASPIRIN 325 MG TABLET PO ONE (17:49)
[2024-07-20] MEDS: FUROSEMIDE 40 MG/4 ML VIAL IVP ONE (17:50)
[2024-07-20 18:35] LABS: COVID AG,FIA SOURCE NASAL SWAB
[2024-07-20] MEDS ORDERED: ONDANSETRON HCL 4 MG/2 ML VIAL IVP PRN (18:45)
[2024-07-20] MEDS ORDERED: ACETAMINOPHEN 325 MG TABLET PO PRN (18:45)
[2024-07-20 19:04] LABS: SARS-COV2 (COVID) ANTIGEN,FIA Negative (Negative)
[2024-07-20 19:05] LABS: INFLUENZA TYPE A NEGATIVE FOR TYPE A (NEGATIVE); INFLUENZA TYPE B POSITIVE FOR TYPE B (NEGATIVE)
[2024-07-20 19:52] LABS: APPEARANCE,URINE CLEAR (CLEAR); BILIRUBIN,URINE NEGATIVE (NEGATIVE); COLOR,URINE LIGHT YELLOW (YELLOW); GLUCOSE, URINE (UA) NEGATIVE (NEGATIVE); KETONES,URINE NEGATIVE (NEGATIVE); LEUKOCYTE ESTERASE ,URINE NEGATIVE (NEGATIVE); NITRATE,URINE NEGATIVE (NEGATIVE); OCCULT BLOOD,URINE NEGATIVE (NEGATIVE); PH,URINE 6.5 (5.0-8.0); PH,URINE DRUG SCREEN 6.5 (5.0-8.0); PROTEIN,URINE NEGATIVE (NEGATIVE); SPECIFIC GRAVITIY, URINE 1.009 (1.003-1.030)
[2024-07-20 19:56] LABS: ALCOHOL, URINE DRUG SCREEN NEGATIVE (NEGATIVE); AMPHET/METH SCREEN,URINE POSITIVE (NEGATIVE); BARBITURATE SCREEN, URINE NEGATIVE (NEGATIVE); BENZODIAZEPINES SCREEN,URINE NEGATIVE (NEGATIVE); CANNABINOID SCREEN,URINE NEGATIVE (NEGATIVE); COCAINE SCREEN,URINE NEGATIVE (NEGATIVE); METHADONE SCREEN, URINE NEGATIVE (NEGATIVE); OPIATE SCREEN,URINE NEGATIVE (NEGATIVE); PHENCYCLIDINE SCREEN,URINE NEGATIVE (NEGATIVE)
[2024-07-20 20:04] LABS: BACTERIA,URINE Rare /HPF (None Seen); RBC,URINE 0-2 /HPF (0-2); SQUAMOUS EPITHELIAL CELL,UR Rare /LPF (None Seen); WBC,URINE 0-2 /HPF (0-5)
[2024-07-20] MEDS: DOCUSATE SODIUM 100 MG CAPSULE PO SCH (20:40)
[2024-07-20] MEDS: OSELTAMIVIR PHOSPHATE 75 MG CAPSULE PO SCH (22:46)
[2024-07-20 23:00] VITALS: BP 126/90; PULSE 75; RESP 19; TEMP 98; O2SAT 95
[2024-07-20] MEDS: HEPARIN SODIUM,PORCINE 5,000 UNITS/ML VIAL SQ SCH (23:43)
[2024-07-21 04:48] VITALS: BP 132/88; PULSE 75; RESP 19; TEMP 97.8; O2SAT 96
[2024-07-21 07:26] LABS: ANION GAP 6 mmol/L (8-16); CALCIUM, TOTAL 8.5 mg/dL (8.8-10.5); CARBON DIOXIDE 29 mmol/L (22-29); CHLORIDE 104 mmol/L (98-107); CREATININE 0.96 mg/dL (0.60-1.30); EOSINOPHILS % (AUTO) 3.2 % (1.0-6.0); GLOMERULAR FILTR. RATE CALC > 60 mL/min (>60); GLUCOSE,RANDOM 95 mg/dL (70-110); HEMOGLOBIN 11.9 g/dL (13.5-17.5); LYMPHOCYTES # (AUTO) 0.7 K/uL (1.0-4.8); LYMPHOCYTES % (AUTO) 12.2 % (22.0-44.0); MEAN CORPUSCULAR HEMOGLOBIN 31.6 pg (26.0-34.0); MEAN CORPUSCULAR HGB CONC 33.1 G/dL (31.0-37.0); MEAN CORPUSCULAR VOLUME 95 fL (80-100); MONOCYTES # (AUTO) 0.6 K/uL (0.1-1.0); MONOCYTES % (AUTO) 10.7 % (2.0-9.0); NEUTROPHILS % (AUTO) 68.9 % (40.0-70.0); PLATELET COUNT (AUTO) 188 K/uL (150-450); POTASSIUM 3.6 mmol/L (3.5-5.1); RED BLOOD CELL COUNT(AUTO) 3.78 MIL/uL (4.50-5.90); RED CELL DISTRIBUTION WIDTH 15.5 % (11.5-14.5); SODIUM SERUM 139 mmol/L (136-145); UREA NITROGEN, BLOOD 20 mg/dL (7-18); WHITE BLOOD COUNT (AUTO) 5.8 K/uL (4.5-11.0)
[2024-07-21 08:00] VITALS: BP 128/90; PULSE 80; RESP 20; TEMP 97.9; O2SAT 96
[2024-07-21] MEDS: carvediloL 3.125 MG TABLET PO SCH (08:22)
[2024-07-21] MEDS: SACUBITRIL/VALSARTAN 24-26 MG TABLET PO ONE (08:22)
[2024-07-21] MEDS: EMPAGLIFLOZIN 10 MG TABLET PO SCH (08:22)
[2024-07-21] MEDS: FUROSEMIDE 20 MG/2 ML VIAL IVP SCH (10:15)
[2024-07-21] MEDS ORDERED: SACU1TAB PO (12:31)
[2024-07-21] MEDS ORDERED: CARV3 PO (12:31)
[2024-07-21] MEDS ORDERED: EMPA10TA3 PO (12:31)
[2024-07-21] MEDS ORDERED: ATOR40TA28 PO (12:37)
[2024-07-21] MEDS ORDERED: ASPI-1444 PO (12:37)
[2024-07-21] MEDS ORDERED: OSEL75CA17 PO (12:40)
[2024-07-21 16:29] VITALS: BP 123/88; PULSE 64; RESP 20; TEMP 98.2; O2SAT 95
[2024-07-21 19:20] VITALS: BP 128/84; PULSE 82; RESP 18; TEMP 98; O2SAT 98
[2024-07-21 21:02] VITALS: BP 117/89; PULSE 78; RESP 18; O2SAT 98
[2024-07-22 04:20] VITALS: BP 117/90; PULSE 61; RESP 19; TEMP 97.8; O2SAT 95
[2024-07-22 08:10] VITALS: BP 122/98; PULSE 68; RESP 18; TEMP 97.5; O2SAT 99
== END 2024-07-22 12:22 | disposition home or self-care (01) | DRG 194 ==
LOC: EMS 16:27 → EDH 18:43 → 4E 23:24
PROVIDERS: ADMIT Internal Medicine; ATTEND Internal Medicine
DX: I11.0 Hypertensive heart disease with heart failure (principal); I42.9 Cardiomyopathy, unspecified; J10.1 Influenza due to other identified influenza virus with other respiratory manifestations; I50.23 Acute on chronic systolic (congestive) heart failure; E78.5 Hyperlipidemia, unspecified; F15.10 Other stimulant abuse, uncomplicated; R06.03 Acute respiratory distress; F17.200 Nicotine dependence, unspecified, uncomplicated; Z20.822 Contact with and (suspected) exposure to COVID-19; Z79.899 Other long term (current) drug therapy; Z79.82 Long term (current) use of aspirin
CPT/HCPCS: 71045; 80048; 80307; 81001; 83735; 83880; 84145; 84484; 85025; 87804; 93005; 93306; 96374; 99285; G0378; J1644; J1940; 36415-L1; 36415-TC

== ENCOUNTER 2024-09-04 17:57 | Emergency (ER) | payer MEDICAID ==
[~2024-09-04] VITALS: Ht 160 cm; Wt 75.0 kg
[~2024-09-04 17:57] MED LIST changes: -ALBU18HF12 IH; +ASPI-1444 PO; +ATOR40TA28 PO; -LEVO750T68 PO; +METO25 PO; -PRED-729 PO
[2024-09-04 18:04] VITALS: BP 129/82; PULSE 91; RESP 16; TEMP 97.9; O2SAT 98
[2024-09-04] MEDS ORDERED: LOSA-381 PO (18:37)
[2024-09-04] MEDS ORDERED: ATOR40TA28 PO (18:37)
[2024-09-04] MEDS ORDERED: ASPI-1444 PO (18:37)
[2024-09-04] MEDS ORDERED: METO25 PO (18:37)
[2024-09-04] MEDS ORDERED: FURO40TA6 PO (18:37)
[2024-09-04] MEDS ORDERED: SPIR-37 PO (18:37)
== END 2024-09-04 18:47 | disposition home or self-care (01) ==
LOC: EMS 17:58
DX: I11.0 Hypertensive heart disease with heart failure (principal); F15.90 Other stimulant use, unspecified, uncomplicated; F12.90 Cannabis use, unspecified, uncomplicated; I50.9 Heart failure, unspecified; Z79.82 Long term (current) use of aspirin; Z76.0 Encounter for issue of repeat prescription; Z79.899 Other long term (current) drug therapy
CPT/HCPCS: 99281; Z7502

== ENCOUNTER 2024-11-19 00:18 | Emergency (ER) | payer MEDICAID ==
[~2024-11-19] VITALS: Ht 167.6 cm; Wt 72.7 kg
[2024-11-19 00:23] VITALS: BP 136/93; PULSE 104; RESP 19; TEMP 99.5; O2SAT 97
[2024-11-19 00:51] LABS: PLATELET COUNT (AUTO) 244 K/uL (150-450); RED BLOOD CELL COUNT(AUTO) 4.06 MIL/uL (4.50-5.90); RED CELL DISTRIBUTION WIDTH 15.2 % (11.5-14.5); WHITE BLOOD COUNT (AUTO) 10.6 K/uL (4.5-11.0)
[2024-11-19 01:02] LABS: CALCIUM, TOTAL 8.8 mg/dL (8.8-10.5); CREATININE 1.00 mg/dL (0.60-1.30); GLOMERULAR FILTR. RATE CALC > 60 mL/min (>60); GLUCOSE,RANDOM 111 mg/dL (70-110); SODIUM SERUM 138 mmol/L (136-145); UREA NITROGEN, BLOOD 19 mg/dL (7-18)
[2024-11-19 01:12] LABS: TROPONIN I-HIGH SENSITIVITY 32 ng/L (<76)
[2024-11-19 01:19] LABS: ASPARTATE AMINOTRANSFERASE 71.0 U/L (15-37); TOTAL PROTEIN, SERUM 8.0 g/dL (6.4-8.2)
[2024-11-19] MEDS ORDERED: LOSA-381 PO (03:32)
[2024-11-19] MEDS ORDERED: FURO40TA6 PO (03:32)
[2024-11-19] MEDS ORDERED: ATOR40TA28 PO (03:32)
[2024-11-19] MEDS ORDERED: IPRA4AER IH (03:32)
[2024-11-19] MEDS ORDERED: METO25 PO (03:32)
== END 2024-11-19 03:53 | disposition home or self-care (01) ==
LOC: EMS 00:34
DX: F19.10 Other psychoactive substance abuse, uncomplicated (principal); R07.89 Other chest pain; F10.20 Alcohol dependence, uncomplicated; F15.90 Other stimulant use, unspecified, uncomplicated; I11.0 Hypertensive heart disease with heart failure; I50.9 Heart failure, unspecified; F12.90 Cannabis use, unspecified, uncomplicated; Z79.82 Long term (current) use of aspirin; Z79.899 Other long term (current) drug therapy
CPT/HCPCS: 71045; 80048; 80076; 84484; 85025; 93005; 99285; 36415-L1; 36415-TC

== ENCOUNTER 2024-12-04 14:13 | Emergency (ER) | payer MEDICAID ==
[~2024-12-04] VITALS: Ht 167.6 cm; Wt 75.0 kg
[2024-12-04 14:31] VITALS: TEMP 98.2
[2024-12-04 15:17] LABS: PLATELET COUNT (AUTO) 183 K/uL (150-450); RED BLOOD CELL COUNT(AUTO) 3.95 MIL/uL (4.50-5.90); RED CELL DISTRIBUTION WIDTH 14.3 % (11.5-14.5); WHITE BLOOD COUNT (AUTO) 6.0 K/uL (4.5-11.0)
[2024-12-04 15:25] LABS: CALCIUM, TOTAL 8.1 mg/dL (8.8-10.5); CREATININE 0.84 mg/dL (0.60-1.30); GLOMERULAR FILTR. RATE CALC > 60 mL/min (>60); GLUCOSE,RANDOM 82 mg/dL (70-110); SODIUM SERUM 143 mmol/L (136-145); UREA NITROGEN, BLOOD 18 mg/dL (7-18)
[2024-12-04 15:35] LABS: TROPONIN I-HIGH SENSITIVITY 18 ng/L (<76)
[2024-12-04 18:34] LABS: PH,URINE DRUG SCREEN 6.0 (5.0-8.0)
[2024-12-04 18:40] VITALS: BP 130/68; PULSE 80; RESP 18; O2SAT 99
[2024-12-04 18:41] LABS: AMPHET/METH SCREEN,URINE POSITIVE (NEGATIVE); BARBITURATE SCREEN, URINE NEGATIVE (NEGATIVE); CANNABINOID SCREEN,URINE NEGATIVE (NEGATIVE); COCAINE SCREEN,URINE NEGATIVE (NEGATIVE); METHADONE SCREEN, URINE NEGATIVE (NEGATIVE)
[2024-12-04 18:50] LABS: ALCOHOL, URINE DRUG SCREEN NEGATIVE (NEGATIVE)
[2024-12-04] MEDS ORDERED: SPIR-37 PO (19:14)
[2024-12-04] MEDS ORDERED: IPRA4AER IH (19:14)
[2024-12-04] MEDS ORDERED: FURO40TA6 PO (19:14)
[2024-12-04] MEDS ORDERED: ATOR40TA28 PO (19:14)
[2024-12-04] MEDS ORDERED: ASPI-1444 PO (19:14)
[2024-12-04] MEDS ORDERED: METO25 PO (19:14)
[2024-12-04] MEDS ORDERED: LOSA-381 PO (19:14)
[2024-12-04] MEDS: ALBUTEROL SULFATE HFA 90 MCG/PUFF 8 GM INHALER IH ONE (19:38)
== END 2024-12-04 19:45 | disposition home or self-care (01) ==
LOC: EMS 14:13
DX: J40 Bronchitis, not specified as acute or chronic (principal); R05.9 Cough, unspecified; R09.81 Nasal congestion; F12.90 Cannabis use, unspecified, uncomplicated; F15.10 Other stimulant abuse, uncomplicated; I11.0 Hypertensive heart disease with heart failure; I50.9 Heart failure, unspecified; Z76.0 Encounter for issue of repeat prescription; Z79.82 Long term (current) use of aspirin; Z79.899 Other long term (current) drug therapy; Z59.00 Homelessness unspecified
CPT/HCPCS: 99285; 71045; 80048; 83880; 84484; 85025; 36415; 94640; 93005; 80307; J3535